=== PATIENT | male | born 1975 | race Caucasian/White ===

== ENCOUNTER 2020-08-04 16:59 | Outpatient (REF) | payer OTHER, SELFPAY | END 2020-08-04 17:00 | disposition home or self-care (01) | LOC: HO.LAB 16:59 | PROVIDERS: Visit Provider Nurse Practitioner Family | DX: L02.91 Cutaneous abscess, unspecified (principal) | CPT/HCPCS: 87071; 87077; 87147; 87186; 87205 ==

== ENCOUNTER 2021-07-26 13:05 | Outpatient (REF) | payer OTHER, SELFPAY ==
--- NOTE | ~2021-07-26 | XR_ITS ---
EXAMINATION: XR PELVIS CLINICAL INFORMATION: Hip pain COMPARISON: 06/20/2020 TECHNIQUE: AP view of the pelvis. FINDINGS: No fracture or dislocation. The hips are appropriately aligned. Severe degenerative change of the right hip with superior joint space narrowing and [id number] appearance. Prominent marginal osteophytes. Flattening of the femoral head. This arthritic change has progressed from prior. Moderate degenerative changes of the left hip with narrowing and sclerosis. Osteophyte formation. The pelvic rim is intact. Normal bowel gas pattern. XR/XR pelvis 1-2V IMPRESSION: Progressive severe degenerative changes of the right hip. Moderate degenerative change of the left hip.
== END 2021-07-26 13:06 | disposition home or self-care (01) ==
LOC: HO.HOSX 13:05
PROVIDERS: Visit Provider Orthopaedic Surgery
DX: M16.11 Unilateral primary osteoarthritis, right hip (principal)
CPT/HCPCS: 72170

== ENCOUNTER → 2021-09-11 13:53 | Outpatient (BNVA) | payer OTHER, MEDICAID, SELFPAY | PROVIDERS: Visit Provider Orthopaedic Surgery | DX: Z01.812 Encounter for preprocedural laboratory examination (principal); Z01.810 Encounter for preprocedural cardiovascular examination ==

== ENCOUNTER 2021-09-24 | Outpatient (REF) | payer OTHER, SELFPAY ==
--- NOTE | 2021-09-24 | ECG_ITS ---
Test Reason : PREOP Blood Pressure : / mmHG Vent. Rate : 083 BPM Atrial Rate : 083 BPM P-R Int : 150 ms QRS Dur : 124 ms QT Int : 376 ms P-R-T Axes : 084 087 049 degrees QTc Int : 441 ms Normal sinus rhythm with sinus arrhythmia Right bundle branch block Abnormal ECG No previous ECGs available Referred By: Kiana Chan Electronically Signed By:KEVIN GONZALEZ MD
[2021-09-24 12:17] VITALS: BP 151/87; PULSE 80; RESP 20; O2SAT 100; BMI 27.4
--- NOTE | 2021-09-24 12:30 | P.CONAN_ITS ---
HPI - Anesthesia Eval Consult details Narrative: Reschedule pending cardiac clearance 46yo M for Right Hip Total Replacement Preop and BP recheck pending for September - EKG changes, PCP sending for cardiac clearance [facility] Active Problems Active Problems: All Active Problems (Updated 09/20/21 @ 09:16 by Kirstie Dietz RN) Abscess (Acute) Wound check, abscess (Acute) Primary osteoarthritis of right hip (Acute) Elevated blood pressure reading (Acute) Encounter for general adult medical examination with abnormal findings (Acute) Past Medical History Medical History COVID-19 vaccine series completed History of MRSA infection Osteoarthritis Family History Family History Mother Cancer Family history of problems with anesthesia: No Surgical History Surgical History History of surgery on right wrist Hx of hand surgery Hx of hand surgery History of Problems with Anesthesia: No Social History Social History Housing: House Are you a primary personal care service provider to a significant other at home: No Do you presently have visiting nurse or other home services: No Alcohol intake: never Patient Tobacco Use Status: Never used Tobacco Tobacco use type: Smokeless Tobacco service: No Current occupational status: employed 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 Pain is only limit Meds Allergies Allergy/AdvReac Type Severity Reaction Status Date / Time No Known Allergies Allergy Verified 09/27/21 09:03 Exam Exam Date and Time: September 24, 2021 1230 Height,Weight and Vital Signs: Height 6 ft 2 in Weight 97.069 kg Last Vital Signs Pulse 80 09/24/21 12:17 Resp 20 09/24/21 12:17 BP 151/87 H 09/24/21 12:17 Pulse Ox 100 09/24/21 12:17 Pertinent Lab Results Pertinent Lab Results: Laboratory Tests 09/24/21 09/24/21 08:12 08:12 WBC 5.5 Hgb 15.2 Hct 44.5 Plt Count 187 Sodium 140 Potassium 4.0 Chloride 104 Carbon Dioxide 28 BUN 11 Creatinine 1.02 Airway Mallampati Class: I TM Dist: >3cm Neck ROM: Full Loose/Missing/Broken Teeth: Yes (Left molar broken) Heart: RRR Lungs: CTAB Assessment and Plan Assessment Anesthesia Assessment: Anesthesia Plan Discussed and PAT Visit Final Anesthetic Review Family History of Problems with Anesthesia: No History of Problems with Anesthesia: No
[2021-09-24 15:04] LABS: MRSA Nasal PCR POSITIVE (Negative); SA Nasal PCR POSITIVE (Negative)
== END 2021-09-24 00:01 ==
LOC: HO.PAT
PROVIDERS: Physician Assistant; PCP Internal Medicine; Visit Provider Orthopaedic Surgery
DX: Z01.818 Encounter for other preprocedural examination (principal); M16.11 Unilateral primary osteoarthritis, right hip
CPT/HCPCS: 86850; 86900; 86901; 87640; 87641; 93005

== ENCOUNTER 2021-09-24 08:06 | Outpatient (REF) | payer OTHER, SELFPAY ==
[2021-09-24 11:23] LABS: MANUAL DIFF FLAG NO
[2021-09-24 11:31] LABS: Basophils Percent Auto 0.5 % (0-2); Eosinophils Absolute Auto 0.1 X10*3/uL (0.0-0.4); Eosinophils Percent Auto 0.9 % (0-4); Hematocrit 44.5 % (42.0-52.0); Hemoglobin 15.2 g/dl (14.0-18.0); Imm Gran Abs Auto 0.02 X10*3/uL (0.00-0.03); Imm Gran Pct Auto 0.4 % (0.0-0.4); Lymphocytes Absolute Auto 1.6 X10*3/uL (1.2-4.9); Lymphocytes Percent Auto 28.8 % (20-40); Mean Corpuscular HGB Conc 34.2 g/dl (31.0-36.0); Mean Corpuscular Hemoglobin 32.5 pg (27.0-33.0); Mean Corpuscular Volume 95.3 fL (80.0-98.0); Mean Platelet Volume 11.4 fL (9.4-12.4); Monocytes Absolute Auto 0.6 X10*3/uL (0.1-1.2); Monocytes Percent Auto 10.1 % (2-11); Neutrophils Absolute Auto 3.2 x10*3/uL (2.0-8.3); Neutrophils Percent Auto 59.3 % (45-73); Platelet Count 187 X10*3/uL (160-400); Red Blood Count 4.67 X10*6/uL (4.60-5.80); Red Cell Distribution Width 11.7 % (11.0-16.0); White Blood Count 5.5 X10*3/uL (4.8-10.8)
[2021-09-24 11:50] LABS: Alanine Aminotransferase 25 U/L (0-40); Albumin Level 4.6 g/dL (3.5-5.0); Alkaline Phosphatase 57 U/L (39-117); Anion Gap 12 (12-20); Aspartate Amino Transferase 20 U/L (5-37); Bilirubin Total 0.5 mg/dL (0.0-1.0); Blood Urea Nitrogen 11 mg/dL (9-16); Calcium 9.7 mg/dL (8.4-10.2); Carbon Dioxide 28 mmol/L (22-29); Chloride 104 mmol/L (96-108); Cholesterol 250 mg/dL; Estimated Glomerular Filt Rate > 60; Glucose Fasting 115 mg/dL (60-99); HDL Cholesterol 49 mg/dL; LDL Cholesterol Calculated 144 mg/dl; Sodium 140 mmol/L (135-145); Triglycerides 285 mg/dL
[2021-09-28 12:52] LABS: Vitamin D 25-OH, D2 <4 ng/mL; Vitamin D 25-OH, D3 22 ng/mL; Vitamin D 25-OH, Total 22 ng/mL (30-100)
== END 2021-09-24 08:07 | disposition home or self-care (01) ==
LOC: HO.HMGCLDS 08:06
PROVIDERS: Orthopaedic Surgery; PCP Internal Medicine; Visit Provider Internal Medicine
DX: Z00.01 Encounter for general adult medical examination with abnormal findings (principal); M16.11 Unilateral primary osteoarthritis, right hip; R03.0 Elevated blood-pressure reading, without diagnosis of hypertension
CPT/HCPCS: 36415; 80048; 80053; 80061; 82306; 84443; 85025

== ENCOUNTER → 2021-09-27 08:52 | Outpatient (BNVA) | payer OTHER, SELFPAY | PROVIDERS: Visit Provider Physician Assistant ==

== ENCOUNTER 2021-10-12 18:16 | Inpatient (IN) | payer OTHER, SELFPAY ==
--- NOTE | ~2021-10-12 | XR_ITS ---
EXAMINATION: XR HAND, RIGHT CLINICAL INFORMATION: Right hand cellulitis with question of osteomyelitis COMPARISON: None TECHNIQUE: PA, lateral, and oblique views of the right hand. FINDINGS: Soft tissue swelling is noted benign eminence. 3 screws are present at the base of the second metacarpal. No bony destructive changes are seen to suggest osteomyelitis. No fractures are detected. Degenerative changes are seen at the third DIP joint with large osteophytes. Some milder degenerative changes present at the first metacarpal phalangeal joint as well as the radiocarpal joint. Old healed fracture fifth metacarpal. XR/XR hand RT 2V IMPRESSION: No evidence of osteomyelitis. Postop and degenerative changes as described above
--- NOTE | ~2021-10-12 | US_ITS ---
EXAMINATION: ULTRASOUND EXTREMITY NONVASCULAR CLINICAL INFORMATION: Right hand cellulitis. Rule out abscess. COMPARISON: Previous x-ray from yesterday TECHNIQUE: Grayscale and color imaging of the soft tissues of the dorsal hand FINDINGS: There is diffuse edema. No focal fluid collection to suggest an abscess is seen. US/US extremity nonvascular IMPRESSION: Diffuse edema. No focal fluid collection to suggest abscess seen.
[2021-10-12 19:24] VITALS: BP 128/73; PULSE 97; RESP 16; TEMP 37.8; O2SAT 100; BMI 27.7
[2021-10-12 19:52] LABS: Basophils Absolute Auto 0.1 X10*3/uL (0.0-0.2); Basophils Percent Auto 0.3 % (0-2); Hematocrit 41.3 % (42.0-52.0); Hemoglobin 15.2 g/dl (14.0-18.0); Imm Gran Abs Auto 0.74 X10*3/uL (0.00-0.03); Imm Gran Pct Auto 2.7 % (0.0-0.4); Lymphocytes Absolute Auto 0.7 X10*3/uL (1.2-4.9); Lymphocytes Percent Auto 2.6 % (20-40); MANUAL DIFF FLAG SCAN; Mean Corpuscular HGB Conc 36.8 g/dl (31.0-36.0); Mean Corpuscular Volume 92.4 fL (80.0-98.0); Mean Platelet Volume 10.5 fL (9.4-12.4); Monocytes Absolute Auto 1.3 X10*3/uL (0.1-1.2); Neutrophils Absolute Auto 24.1 x10*3/uL (2.0-8.3); Neutrophils Percent Auto 89.4 % (45-73); Platelet Count 145 X10*3/uL (160-400); Red Blood Count 4.47 X10*6/uL (4.60-5.80); Red Cell Distribution Width 11.6 % (11.0-16.0); SCAN SMEAR FLAG 1
[2021-10-12 20:05] LABS: Lactic Acid 1.4 mmol/L (0.5-2.0)
[2021-10-12 20:07] LABS: COVID-19 Test Negative (Negative)
[2021-10-12 20:11] LABS: Alanine Aminotransferase 24 U/L (0-40); Albumin Level 4.1 g/dL (3.5-5.0); Alkaline Phosphatase 58 U/L (39-117); Anion Gap 14 (12-20); Aspartate Amino Transferase 22 U/L (5-37); Bilirubin Direct 0.5 mg/dL (0.0-0.5); Bilirubin Total 1.2 mg/dL (0.0-1.0); Blood Urea Nitrogen 15 mg/dL (9-16); Calcium 9.1 mg/dL (8.4-10.2); Carbon Dioxide 22 mmol/L (22-29); Chloride 100 mmol/L (96-108); Creatinine Clr Calc Pharmacy 88.6; Estimated Glomerular Filt Rate > 60; Glucose Random 127 mg/dL (60-115); Potassium 3.8 mmol/L (3.3-5.1); Sodium 132 mmol/L (135-145); Total Protein 7.6 g/dL (6.5-8.0)
[2021-10-12 20:26] LABS: SLIDE REVIEW VERIFIED
--- NOTE | 2021-10-12 20:40 | ED_ITS ---
HPI - Skin/Abscess/Foreign Bdy General Chief complaint: Skin/Abscess/Foreign Body <ISAC Mccarty - Last Filed: 10/13/21 00:49> Stated complaint: hand infection <ISAC Mccarty Last Filed: 10/13/21 00:49> Time Seen by Provider: 10/12/21 20:40 <ISAC Mccraty Last Filed: 10/13/21 00:49> Source: patient <ISAC Mccarty Last Filed: 10/13/21 00:49> Mode of arrival: ambulatory <ISAC Mccarty Last Filed: 10/13/21 00:49> Limitations: no limitations <ISAC Mccarty Last Filed: 10/13/21 00:49> History of Present Illness HPI narrative: Patient is a 46 year old male presenting to the emergency department today with right hand pain. Patient states that 2 days ago, he got a cut on his right hand, and now his hand is significantly more swollen and causing him pain. Patient states he does not know when his last tetanus shot was. Patient states he does not remember what he scratched his hand on. Patient states that quite a few years ago, he smashed his right hand, resulting in a surgery where he had screws placed in his right hand. Patient states he does not remember who did the surgery, or where the surgery was. Patient denies any dizziness, lightheadedness, abdominal pain, nausea, vomiting, fever, chills, blurry vision, double vision, loss of vision, chest pain, difficulty breathing, shortness of breath, back pain, night sweats, pain with urination, increased urinary frequency, increased urinary urgency, blood in his urine or stool, syncope or a near syncopal episode, bowel incontinence, bladder incontinence, bowel retention, bladder retention, or any other complaints at this time. <ISAC Mccarty Last Filed: 10/13/21 00:49> MD complaint: laceration <ISAC Mccarty Last Filed: 10/13/21 00:49> Onset (ago): day(s) <ISAC Mccarty Last Filed: 10/13/21 00:49> Tetanus up to date: unsure <ISAC Mccarty Last Filed: 10/13/21 00:49> Location: R hand <ISAC Mccarty - Last Filed: 10/13/21 00:49> Severity: mild <ISAC Mccarty Last Filed: 10/13/21 00:49> Severity scale (1-10): 5 <ISAC Mccarty Last Filed: 10/13/21 00:49> Quality: constant <ISAC Mccarty Last Filed: 10/13/21 00:49> Pain Consistency: constant <ISAC Mccarty Last Filed: 10/13/21 00:49> Relieving factors: none <ISAC Mccarty Last Filed: 10/13/21 00:49> Exacerbating factors: none <ISAC Mccarty Last Filed: 10/13/21 00:49> Associated symptoms: denies other symptoms <ISAC Mccarty Last Filed: 10/13/21 00:49> Treatments prior to arrival: none <ISAC Mccarty Last Filed: 10/13/21 00:49> Related Data Home medications: Previous Rx's Medication Instructions Recorded atenolol 25 mg tablet 25 mg PO DAILY 90 Days #90 tab 09/26/21 oxycodone 10 mg tablet,crush 10 mg PO Q12H 3 Days #6 tab 09/27/21 resistant,extended release 12 hr (OxyContin) oxycodone-acetaminophen 5 mg-325 1 tab PO Q6H PRN 7 Days #28 tab 09/27/21 mg tablet (Percocet) <ISAC Mccarty - Last Filed: 10/13/21 00:49> Allergies/Adverse reactions: Allergies Allergy/AdvReac Type Severity Reaction Status Date / Time No Known Allergies Allergy Verified 09/27/21 09:03 <ISAC Mccarty - Last Filed: 10/13/21 00:49> Review of Systems Constitutional: Constitutional: Reports no additional constitutional complaints, Denies chills, Denies fever(s) and Denies night sweats <ISAC Mccarty Last Filed: 10/13/21 00:49> Eyes: Eyes: Reports no additional eye complaints, Denies blurry vision, Denies change in vision, Denies diplopia, Denies eye discharge, Denies loss of vision and Denies eye pain <ISAC Mccarty Last Filed: 10/13/21 00:49> ENT: Denies dizziness <ISAC Mccarty - Last Filed: 10/13/21 00:49> Cardiovascular: Cardiovascular: Reports no additional cardiovascular complaints, Denies chest pain, Denies lightheadedness, Denies Loss of Consciousness and Denies dyspnea <ISAC Mccarty - Last Filed: 10/13/21 00:49> Respiratory: Respiratory: Reports no additional respiratory complaints and Denies dyspnea <ISAC Mccarty Last Filed: 10/13/21 00:49> Gastrointestinal: Gastrointestinal: Reports no additional gastrointestinal complaints, Denies abdominal pain, Denies melena, Denies hematochezia, Denies change in bowel habits and Denies change in stool character <ISAC Mccarty Last Filed: 10/13/21 00:49> Genitourinary: Genitourinary: Reports no additional male genitourinary complaints, Denies hematuria, Denies oliguria, Denies difficulty urinating, Denies dysuria, Denies urinary frequency, Denies urinary hesitancy, Denies urinary incontinence and Denies urinary urgency <ISAC Mccarty Last Filed: 10/13/21 00:49> Musculoskeletal: Musculoskeletal: Reports no additional musculoskeletal complaints, Denies numbness and Denies tingling <ISAC Mccarty Last Filed: 10/13/21 00:49> Comments: Right hand pain, redness, and swelling <ISAC Mccarty Last Filed: 10/13/21 00:49> Neurologic: Denies dizziness, Denies loss of vision, Denies numbness and Denies tingling <ISAC Mccarty Last Filed: 10/13/21 00:49> Psychiatric: Psychiatric: Reports no additional psychiatric complaints <ISAC Mccarty Last Filed: 10/13/21 00:49> Endocrine: Endocrine: Reports no additional endocrine complaints <ISAC Mccarty Last Filed: 10/13/21 00:49> Hematologic/Lymphatic: Hematologic/Lymphatic: Reports no additional hematologic/lymphatic complaints <ISAC Mccarty - Last Filed: 10/13/21 00:49> Allergic/Immunologic: Allergic/Immunologic: Reports no additional all ergic/immunologic complaints <ISAC Mccarty - Last Filed: 10/13/21 00:49> [facility] Past Medical History Attestation statement: The following information was validated with the patient. <ISAC Mccarty - Last Filed: 10/13/21 00:49> Medical History: Medical History COVID-19 vaccine series completed History of MRSA infection Osteoarthritis <ISAC Mccarty - Last Filed: 10/13/21 00:49> Surgical History: Surgical History History of surgery on right wrist Hx of hand surgery Hx of hand surgery <ISAC Mccarty - Last Filed: 10/13/21 00:49> Family History Family History: Family History Mother Cancer <ISAC Mccarty - Last Filed: 10/13/21 00:49> Social History Social History: Social History Housing: House Are you a primary career technical counselor to a significant other at home: No Do you presently have visiting nurse or other home services: No Alcohol intake: never Patient Tobacco Use Status: Never used Tobacco Tobacco use type: Smokeless Tobacco Use of substances other than those prescribed or required for medical reasons: No Advance Directives: No Advance Directives Information Provided: No Current occupational status: employed 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 <ISAC Mccarty - Last Filed: 10/13/21 00:49> Physical Exam Vital Signs: Vital Signs: Last Vital Signs Temp 98.6 F 10/13/21 00:38 Pulse 90 10/13/21 00:38 Resp 16 10/13/21 00:38 BP 123/68 10/13/21 00:38 Pulse Ox 97 10/13/21 00:38 BMI result Body Mass Index 27.7 <ISAC Mccarty - Last Filed: 10/13/21 00:49> Vital Signs: Last Vital Signs Temp 98.6 F 10/13/21 00:38 Pulse 90 10/13/21 00:38 Resp 16 10/13/21 00:38 BP 123/68 10/13/21 00:38 Pulse Ox 97 10/13/21 00:38 BMI result Body Mass Index 27.7 <Ricardo Caraballo MD - Last Filed: 10/13/21 00:52> Extrem: General: Yes full ROM <ISAC Mccarty - Last Filed: 10/13/21 00:49> Right upper extremity: full ROM and Extremity exam: right hand (Small laceration present to the right 2nd MCP, with surrounding erythema) Details: normal capillary refill, neuromotor exam normal, neurosensory exam normal, tendon exam normal, tenderness Location: of the dorsal hand, warmth Location: of the dorsal hand and swelling Location: of the dorsal hand <ISAC Mccarty - Last Filed: 10/13/21 00:49> Course Course Course Narrative: Patient's right hand x-ray showed: No evidence of osteomyelitis. Postop and degenerative changes as described above Dictated By: MICHELA SMITH MD Signed By: Electronically signed by MICHELA SMITH MD <ISAC Mccarty - Last Filed: 10/13/21 00:49> Consultations Consultation #1: Spoke with Orthopedic PA backend python developer who stated they would round on the patient in the morning. <ISAC Mccarty - Last Filed: 10/13/21 00:49> Time: 21:18 <ISAC Mccarty - Last Filed: 10/13/21 00:49> MDM - Skin/Abscess/Foreign Bdy MDM Narrative Medical decision making narrative: Patient is a 46 year old male presenting to the emergency department today with right hand pain. Patient's physical exam showed erythema, warmth, and significant swelling to the dorsal aspect of the right hand surrounding the 2nd MCP joint. Patient's range of motion, and sensation were completely intact the right upper extremity including the right fingers, right hand, right wrist, right forearm, or elbow, right upper arm, and right shoulder. Patient's blood wo rk showed a markedly elevated white blood cell count. Patient's right hand x- ray showed no acute process but did show the presence of surgical hardware and degenerative changes. I explained my physical exam findings as well as all test results to the patient. I answered all questions asked by the patient. Patient received IV vancomycin, Rocephin, morphine which he stated helped his symptoms significantly. I spoke to the orthopedic PA, Raisa, who stated that she would round on the patient tomorrow morning. I spoke to Dr. Mcmahan who agreed to hospital admission. Patient verbalized agreement and understanding with this treatment plan and admission. <ISAC Mccarty - Last Filed: 10/13/21 00:49> Differential Diagnosis Differential diagnosis: Likely abscess of skin or subcutaneous tissue and cellulitis <ISAC Mccarty - Last Filed: 10/13/21 00:49> Medical Records Attestation: I reviewed the patient's medical records. <ISAC Mccarty - Last Filed: 10/13/21 00:49> Lab Data Attestation: I reviewed the patient's lab results. <ISAC Mccarty - Last Filed: 10/13/21 00:49> Result diagrams: : 10/12/21 19:43 10/12/21 19:43 <ISAC Mccarty - Last Filed: 10/13/21 00:49> Labs: Lab Results 10/12/21 10/12/21 10/12/21 Range/Units 19:43 19:43 19:43 WBC 27.0 H (4.8-10.8) X10*3/uL RBC 4.47 L (4.60-5.80) X10*6/uL Hgb 15.2 (14.0-18.0) g/dl Hct 41.3 L (42.0-52.0) % MCV 92.4 (80.0-98.0) fL MCH 34.0 H (27.0-33.0) pg MCHC 36.8 H (31.0-36.0) g/dl RDW 11.6 (11.0-16.0) % Plt Count 145 L (160-400) X10*3/uL MPV 10.5 (9.4-12.4) fL Immature Gran % (Auto) 2.7 H (0.0-0.4) % Neut % (Auto) 89.4 H (45-73) % Lymph % (Auto) 2.6 L (20-40) % [place] % (Auto) 5.0 (2-11) % Eos % (Auto) 0.0 (0-4) % Baso % (Auto) 0.3 (0-2) % Lymph # (Auto) 0.7 L (1.2-4.9) X10*3/uL [place] # (Auto) 1.3 H (0.1-1.2) X10*3/uL Eos # (Auto) 0.0 (0.0-0.4) X10*3/uL Baso # (Auto) 0.1 (0.0-0.2) X10*3/uL Abs Immat Gran (auto) 0.74 H (0.00-0.03) X10*3/uL Absolute Neuts (auto) 24.1 H (2.0-8.3) x10*3/uL Absolute Nucleated RBC 0.000 (0.0-0.012) X10*3/uL Nucleated RBC % (auto) 0.0 (0.0-0.2) /100WBC Smear Tech's Comments VERIFIED Sodium 132 L (135-145) mmol/L Potassium 3.8 (3.3-5.1) mmol/L Chloride 100 (96-108) mmol/L Carbon Dioxide 22 (22-29) mmol/L Anion Gap 14 (12-20) BUN 15 (9-16) mg/dL Creatinine 1.21 (0.5-1.4) mg/dL Estim Creat Clear Calc 88.6 Estimated GFR > 60 Random Glucose 127 H (60-115) mg/dL Lactic Acid 1.4 (0.5-2.0) mmol/L Calcium 9.1 D (8.4-10.2) mg/dL Total Bilirubin 1.2 H (0.0-1.0) mg/dL Direct Bilirubin 0.5 (0.0-0.5) mg/dL AST 22 (5-37) U/L ALT 24 (0-40) U/L Alkaline Phosphatase 58 (39-117) U/L Total Protein 7.6 (6.5-8.0) g/dL Albumin 4.1 (3.5-5.0) g/dL COVID-19 ([facility]ADE) (Negative) COVID-19 Clin Com 10/12/21 Range/Units 19:43 WBC (4.8-10.8) X10*3/uL RBC (4.60-5.80) X10*6/uL Hgb (14.0-18.0) g/dl Hct (42.0-52.0) % MCV (80.0-98.0) fL MCH (27.0-33.0) pg MCHC (31.0-36.0) g/dl RDW (11.0-16.0) % Plt Count (160-400) X10*3/uL MPV (9.4-12.4) fL Immature Gran % (Auto) (0.0-0.4) % Neut % (Auto) (45-73) % Lymph % (Auto) (20-40) % [place] % (Auto) (2-11) % Eos % (Auto) (0-4) % Baso % (Auto) (0-2) % Lymph # (Auto) (1.2-4.9) X10*3/uL [place] # (Auto) (0.1-1.2) X10*3/uL Eos # (Auto) (0.0-0.4) X10*3/uL Baso # (Auto) (0.0-0.2) X10*3/uL Abs Immat Gran (auto) (0.00-0.03) X10*3/uL Absolute Neuts (auto) (2.0-8.3) x10*3/uL Absolute Nucleated RBC (0.0-0.012) X10*3/uL Nucleated RBC % (auto) (0.0-0.2) /100WBC Smear Tech's Comments Sodium (135-145) mmol/L Potassium (3.3-5.1) mmol/L Chloride (96-108) mmol/L Carbon Dioxide (22-29) mmol/L Anion Gap (12-20) BUN (9-16) mg/dL Creatinine (0.5-1.4) mg/dL Estim Creat Clear Calc Estimated GFR Random Glucose (60-115) mg/dL Lactic Acid (0.5-2.0) mmol/L Calcium (8.4-10.2) mg/dL Total Bilirubin (0.0-1.0) mg/dL Direct Bilirubin (0.0-0.5) mg/dL AST (5-37) U/L ALT (0-40) U/L Alkaline Phosphatase (39-117) U/L Total Protein (6.5-8.0) g/dL Albumin (3.5-5.0) g/dL COVID-19 ([facility]ADE) Negative (Negative) COVID-19 Clin Com See Note <ISAC Mccarty - Last Filed: 10/13/21 00:49> Lab Results 10/12/21 10/12/21 10/12/21 Range/Units 19:43 19:43 19:43 WBC 27.0 H (4.8-10.8) X10*3/uL RBC 4.47 L (4.60-5.80) X10*6/uL Hgb 15.2 (14.0-18.0) g/dl Hct 41.3 L (42.0-52.0) % MCV 92.4 (80.0-98.0) fL MCH 34.0 H (27.0-33.0) pg MCHC 36.8 H (31.0-36.0) g/dl RDW 11.6 (11.0-16.0) % Plt Count 145 L (160-400) X10*3/uL MPV 10.5 (9.4-12.4) fL Immature Gran % (Auto) 2.7 H (0.0-0.4) % Neut % (Auto) 89.4 H (45-73) % Lymph % (Auto) 2.6 L (20-40) % [place] % (Auto) 5.0 (2-11) % Eos % (Auto) 0.0 (0-4) % Baso % (Auto) 0.3 (0-2) % Lymph # (Auto) 0.7 L (1.2-4.9) X10*3/uL [place] # (Auto) 1.3 H (0.1-1.2) X10*3/uL Eos # (Auto) 0.0 (0.0-0.4) X10*3/uL Baso # (Auto) 0.1 (0.0-0.2) X10*3/uL Abs Immat Gran (auto) 0.74 H (0.00-0.03) X10*3/uL Absolute Neuts (auto) 24.1 H (2.0-8.3) x10*3/uL Absolute Nucleated RBC 0.000 (0.0-0.012) X10*3/uL Nucleated RBC % (auto) 0.0 (0.0-0.2) /100WBC Smear Tech's Comments VERIFIED Sodium 132 L (135-145) mmol/L Potassium 3.8 (3.3-5.1) mmol/L Chloride 100 (96-108) mmol/L Carbon Dioxide 22 (22-29) mmol/L Anion Gap 14 (12-20) BUN 15 (9-16) mg/dL Creatinine 1.21 (0.5-1.4) mg/dL Estim Creat Clear Calc 88.6 Estimated GFR > 60 Random Glucose 127 H (60-115) mg/dL Lactic Acid 1.4 (0.5-2.0) mmol/L Calcium 9.1 D (8.4-10.2) mg/dL Total Bilirubin 1.2 H (0.0-1.0) mg/dL Direct Bilirubin 0.5 (0.0-0.5) mg/dL AST 22 (5-37) U/L ALT 24 (0-40) U/L Alkaline Phosphatase 58 (39-117) U/L Total Protein 7.6 (6.5-8.0) g/dL Albumin 4.1 (3.5-5.0) g/dL COVID-19 ([facility]) (Negative) COVID-19 Clin Com 10/12/21 Range/Units 19:43 WBC (4.8-10.8) X10*3/uL RBC (4.60-5.80) X10*6/uL Hgb (14.0-18.0) g/dl Hct (42.0-52.0) % MCV (80.0-98.0) fL MCH (27.0-33.0) pg MCHC (31.0-36.0) g/dl RDW (11.0-16.0) % Plt Count (160-400) X10*3/uL MPV (9.4-12.4) fL Immature Gran % (Auto) (0.0-0.4) % Neut % (Auto) (45-73) % Lymph % (Auto) (20-40) % [place] % (Auto) (2-11) % Eos % (Auto) (0-4) % Baso % (Auto) (0-2) % Lymph # (Auto) (1.2-4.9) X10*3/uL [place] # (Auto) (0.1-1.2) X10*3/uL Eos # (Auto) (0.0-0.4) X10*3/uL Baso # (Auto) (0.0-0.2) X10*3/uL Abs Immat Gran (auto) (0.00-0.03) X10*3/uL Absolute Neuts (auto) (2.0-8.3) x10*3/uL Absolute Nucleated RBC (0.0-0.012) X10*3/uL Nucleated RBC % (auto) (0.0-0.2) /100WBC Smear Tech's Comments Sodium (135-145) mmol/L Potassium (3.3-5.1) mmol/L Chloride (96-108) mmol/L Carbon Dioxide (22-29) mmol/L Anion Gap (12-20) BUN (9-16) mg/dL Creatinine (0.5-1.4) mg/dL Estim Creat Clear Calc Estimated GFR Random Glucose (60-115) mg/dL Lactic Acid (0.5-2.0) mmol/L Calcium (8.4-10.2) mg/dL Total Bilirubin (0.0-1.0) mg/dL Direct Bilirubin (0.0-0.5) mg/dL AST (5-37) U/L ALT (0-40) U/L Alkaline Phosphatase (39-117) U/L Total Protein (6.5-8.0) g/dL Albumin (3.5-5.0) g/dL COVID-19 ([facility]) Negative (Negative) COVID-19 Clin Com See Note <Ricardo Caraballo MD - Last Filed: 10/13/21 00:52> Discharge Plan Discharge Clinical Impression: Cellulitis of hand <ISAC Mccarty - Last Filed: 10/13/21 00:49> Patient Disposition: Admitted As Inpatient <ISAC Mccarty - Last Filed: 10/13/21 00:49>
[2021-10-12] MEDS: Diphth,Pertus(ACell),Tet Adult 0.5 ML SYRINGE IM (21:16)
[2021-10-12] MEDS: cefTRIAXone sodium 1 GM in 0.9 % Sodium Chloride 50 ML IV (21:17)
[2021-10-12] MEDS: vancomycin HCL 1,000 MG in 0.9 % Sodium Chloride 250 ML 270 MG IV (21:47)
[2021-10-12 21:48] VITALS: BP 125/67; PULSE 97; RESP 16; TEMP 37.8; O2SAT 100
[2021-10-12 22:36] VITALS: RESP 15
[2021-10-12] MEDS: Morphine Sulfate 4 MG/ML CARTRIDGE IVPUSH (22:36)
--- NOTE | 2021-10-12 22:55 | P.HPHOSP_ITS ---
History of Present Illness Date of Service: 10/12/21 Chief Complaint: right hand pain redness and swelling 46-year-old male with a past medical history of hypertension , osteoarthritis, history of total right hip arthroplasty presented to the hospital with a chief complaint of right hand pain redness and swelling. patient mentioned that over the past few days ago he had a small latia on the medial side of his right hand, subsequently is he was applying topical antibiotics; but continued to have increased pain and swelling on the dorsum of the right hand; denies any fevers. As the symptoms were worsening decided to come to the ER for further evaluation. Denies any chest pain palpitations lightheadedness or dizziness. Denies any GI symptoms. ER course: Per ER team patient noted to have dorsum of the hand swollen, no fluctuance E, less concern for abscess; able to extend the fingers-less concern for tenosynovitis. Discussed with ortho team who recommended admission to the medicine service and will be evaluated in the morning. Patient was given vanc and ceftriaxone. [facility] Medical History COVID-19 vaccine series completed History of MRSA infection Osteoarthritis Family History Mother Cancer Pertinent family history: As above Surgical History History of surgery on right wrist Hx of hand surgery Hx of hand surgery Social History (Updated 09/27/21 @ 09:01 by Devante Estrella) Housing: House Are you a primary specialist wound care to a significant other at home: No Do you presently have visiting nurse or other home services: No Alcohol intake: never Patient Tobacco Use Status: Never used Tobacco Tobacco use type: Smokeless Tobacco Use of substances other than those prescribed or required for medical reasons: No Advance Directives: No Advance Directives Information Provided: No Current occupational status: employed 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 Meds Allergies Allergy/AdvReac Type Severity Reaction Status Date / Time No Known Allergies Allergy Verified 09/27/21 09:03 Physical Exam Verdana 4l Vital Signs and Narrative: Verdana 4d Verdana 4d Vital Signs: Verdana 4d Verdana 4Bd Last Vital Signs Verdana 4d Produce Field Merchandiser New 4d Produce Field Merchandiser New 4d Temp 100.0 F 10/12/21 21:48 Produce Field Merchandiser New 4d Pulse 97 10/12/21 21:48 Produce Field Merchandiser NewNew 4d Resp 15 10/12/21 22:36 BP 125/67 10/12/21 21:48 Pulse Ox 100 10/12/21 21:48 BMI result Body Mass Index 27.7 Gen: Appears be in no acute distress HEENT: NCAT, Moist mucosa. Pulmonary: Vesicular breath sounds, fair air entry CVS: Normal S1-S2 Abdomen: BS+, Soft, Nontender Extremities: Warm well perfused; right hand dorsum warm, tender, erythematous, swollen, no fluctuance see. Able to extend the fingers. Range of motion of the wrist intact. Neuro: Alert and awake. Results Labs CBC and Chem 7: 10/12/21 19:43 10/12/21 19:43 Labs: Laboratory Results - last 24 hr 10/12/21 10/12/21 10/12/21 19:43 19:43 19:43 MCV 92.4 MCH 34.0 H MCHC 36.8 H RDW 11.6 Plt Count 145 L MPV 10.5 Immature Gran % (Auto) 2.7 H Neut % (Auto) 89.4 H Lymph % (Auto) 2.6 L [place] % (Auto) 5.0 Eos % (Auto) 0.0 Baso % (Auto) 0.3 Lymph # (Auto) 0.7 L [place] # (Auto) 1.3 H Eos # (Auto) 0.0 Baso # (Auto) 0.1 Abs Immat Gran (auto) 0.74 H Absolute Neuts (auto) 24.1 H Absolute Nucleated RBC 0.000 Nucleated RBC % (auto) 0.0 Smear Tech's Comments VERIFIED Anion Gap 14 Estim Creat Clear Calc 88.6 Estimated GFR > 60 Random Glucose 127 H Lactic Acid 1.4 Calcium 9.1 D Total Bilirubin 1.2 H Direct Bilirubin 0.5 AST 22 ALT 24 Alkaline Phosphatase 58 Total Protein 7.6 Albumin 4.1 COVID-19 ([facility]) COVID-19 Clin Com 10/12/21 19:43 MCV MCH MCHC RDW Plt Count MPV Immature Gran % (Auto) Neut % (Auto) Lymph % (Auto) [place] % (Auto) Eos % (Auto) Baso % (Auto) Lymph # (Auto) [place] # (Auto) Eos # (Auto) Baso # (Auto) Abs Immat Gran (auto) Absolute Neuts (auto) Absolute Nucleated RBC Nucleated RBC % (auto) Smear Tech's Comments Anion Gap Estim Creat Clear Calc Estimated GFR Random Glucose Lactic Acid Calcium Total Bilirubin Direct Bilirubin AST ALT Alkaline Phosphatase Total Protein Albumin COVID-19 ([facility]) Negative COVID-19 Clin Com See Note Imaging Radiologist's Impressions: Impressions Hand X-Ray 10/12/21 21:06 IMPRESSION: No evidence of osteomyelitis. Postop and degenerative changes as described above Assessment and Plan (1) Cellulitis of hand: Status: Acute 46-year-old male with a past medical history of hypertension , osteoarthritis, history of total right hip arthroplasty presented to the hospital with a chief complaint of right hand pain redness and swelling. Noted to have right hand dorsum cellulitis. Admitted for further management. Right hand dorsum cellulitis: hand x-ray showed no evidence of osteomyelitis. Degenerative changes noted. Continue vancomycin and ceftriaxone. Will obtain ultrasound Patient currently has decent range of motion of his fingers as well as wrist. Less concern for tenosynovitis. Had surgery/ Orthopedics follow-up. History of hypertension: Continue home med level. DVT prophylaxis: Lovenox Code status: Full code Quality Stroke Does the patient have a stroke diagnosis?: No VTE Prior VTE?: No VTE Risk Level:: Medical - moderate - high VTE Device Contraindication: Treatment Not Indicated VTE Drug Contraindication: N/A - Med Ordered
[2021-10-13 00:38] VITALS: BP 123/68; PULSE 90; RESP 16; TEMP 37; O2SAT 97
[2021-10-13 03:09] VITALS: BP 117/76; PULSE 92; RESP 16; TEMP 37.2; O2SAT 100
[2021-10-13 07:12] LABS: MANUAL DIFF FLAG NO
[2021-10-13 07:21] VITALS: BP 113/66; PULSE 97; RESP 14; TEMP 36.9; O2SAT 97
[2021-10-13] MEDS: atenoloL 25 MG TABLET PO (07:21)
[2021-10-13] MEDS: 0.9 % Sodium Chloride Flush 3 ML SYRINGE IVFLUSH ×3 (07:22→23:48)
[2021-10-13] MEDS: Enoxaparin Sodium 40 MG/0.4 ML SYRINGE SUBCUT (07:22)
[2021-10-13 07:32] LABS: Basophils Percent Auto 0.2 % (0-2); Eosinophils Absolute Auto 0.1 X10*3/uL (0.0-0.4); Eosinophils Percent Auto 0.7 % (0-4); Hematocrit 38.1 % (42.0-52.0); Hemoglobin 13.5 g/dl (14.0-18.0); Imm Gran Abs Auto 0.32 X10*3/uL (0.00-0.03); Imm Gran Pct Auto 1.9 % (0.0-0.4); Lymphocytes Absolute Auto 0.6 X10*3/uL (1.2-4.9); Lymphocytes Percent Auto 3.3 % (20-40); Mean Corpuscular HGB Conc 35.4 g/dl (31.0-36.0); Mean Corpuscular Hemoglobin 33.3 pg (27.0-33.0); Mean Corpuscular Volume 93.8 fL (80.0-98.0); Mean Platelet Volume 10.6 fL (9.4-12.4); Monocytes Absolute Auto 0.7 X10*3/uL (0.1-1.2); Monocytes Percent Auto 4.1 % (2-11); Neutrophils Absolute Auto 15.2 x10*3/uL (2.0-8.3); Neutrophils Percent Auto 89.8 % (45-73); Platelet Count 117 X10*3/uL (160-400); Red Blood Count 4.06 X10*6/uL (4.60-5.80); Red Cell Distribution Width 11.5 % (11.0-16.0); White Blood Count 16.9 X10*3/uL (4.8-10.8)
[2021-10-13 07:36] LABS: Anion Gap 12 (12-20); Blood Urea Nitrogen 13 mg/dL (9-16); Calcium 8.7 mg/dL (8.4-10.2); Carbon Dioxide 25 mmol/L (22-29); Chloride 101 mmol/L (96-108); Creatinine Clr Calc Pharmacy 105.2; Estimated Glomerular Filt Rate > 60; Glucose Random 117 mg/dL (60-115); Potassium 3.5 mmol/L (3.3-5.1); Sodium 134 mmol/L (135-145)
--- NOTE | 2021-10-13 07:53 | PHA.MEDREC ---
Pharmacy Consult ? Medication Reconciliation RN completed med rec, pharmacy reviewed
--- NOTE | 2021-10-13 09:39 | PHA.PROG ---
Admission Date/Time: October 12, 2021 22:54 Indication: Cellulitis Weight in k.976 kg Adjusted body weight in K.5 mg [place] body weight in K.2 mg Obesity Dosing Indication % IBW: N/A Serum Creatinine - Last 168 Hours 10/12/21 10/13/21 19:43 07:02 Creatinine 1.21 1.02 Estimated CrCl and GFR - Last 168 Hours 10/12/21 10/13/21 19:43 07:02 Estim Creat Clear Calc 88.6 105.2 Estimated GFR > 60 > 60 Vancomycin Loading Dose: 1000 mg on 10/12 @ 2147 then 1500 mg to be given 10/13 @ 1000 Current Vancomycin Dosing Regimen: 1000 mg Q12H Date and Time for next Vancomycin Level to be drawn: 10/14 @ 0800 Pharmacist Comments on Vancomycin Plan: Patient did not receive an adequate loading dose. Patient weighs 98 kg and would need a 2 g loading dose. Patient was only given 1 gram. To help load the patient, will give a one time dose of 1500 mg prior to maintenance dose that is 12 hours after initial dose. Mainteance dose of 1000 mg Q12H will start 10/13 @ 2200. The expected AUC will be 427 with a trough of 13.4. The patient should be in therpautic level by around dose number 4. Trough to be drawn prior to 4th dose Pharmacy will monitor renal function daily Karlee Hall PharmD Vancomycin dosing will take advantage of [employer] as a clinical decision support tool that uses Bayesian modeling to calculate individual patient's pharmacokinetic parameters and forecast the patient's drug concentration time course with the target goal AUC 24 range of 400 - 600 mg/L/hr.
[2021-10-13 09:42] VITALS: BP 107/67; PULSE 83; RESP 15; TEMP 37.4; O2SAT 98
[2021-10-13] MEDS: vancomycin HCL 1,500 MG in 0.9 % Sodium Chloride 500 ML 333.33 MG IV (09:54)
--- NOTE | 2021-10-13 10:57 | PM.EVENT ---
Event Note Date of Service: 10/13/21 Event Note: Patient evaluated at bedside this morning. He reports that his pain, redness and inflammation has decreased since abx. would recommend bedside warm soaks/brandon. No concern for tenosynovitis at this time. Formal note to follow.
--- NOTE | 2021-10-13 11:06 | PC.NURSE ---
Report to [place] in ED overflow to bed 12 at this time.
--- NOTE | 2021-10-13 11:59 | P.PNIM_ITS ---
Subjective Subjective Date of Service: 10/13/21 Interval History: cc: right hand pain and swelling interval history: improved ROM, still pain and swelling Cardiovascular Cardiovascular: Reports no additional cardiovascular complaints Respiratory Respiratory: Reports no additional respiratory complaints Physical Exam Vital Signs: Vital Signs: Last Vital Signs Temp 99.4 F 10/13/21 09:42 Pulse 83 10/13/21 09:42 Resp 15 10/13/21 09:42 BP 107/67 10/13/21 09:42 Pulse Ox 98 10/13/21 09:42 BMI result Body Mass Index 27.7 General: AO X 3, no acute distress Resp: CTA bilateral, no accessory muscles used CVS: S1,S2,RRR GI: soft, non tender, non distended Neuro: motor grossly intact, alert Psych: appropriate affect, appropriate insight ext: right hand swelling, erythema Objective Data Active Medications Acetaminophen (Acetaminophen 325 Mg Tablet) 650 mg PO Q6H PRN PRN Reason: Pain, Mild (Pain Scale 1-3) Atenolol (Atenolol 25 Mg Tablet) 25 mg PO DAILY [facility]; Protocol Last Admin: 10/13/21 07:21 Dose: 25 mg Documented by: RILEY Enoxaparin Sodium (Enoxaparin Sodium 40 Mg/0.4 Ml Syringe) 40 mg SUBCUT Q24H [facility] Last Admin: 10/13/21 07:22 Dose: 40 mg Documented by: RILEY Vancomycin HCl 1,000 mg/ (Sodium Chloride) 270 mls @ 270 mls/hr IV Q12H [facility] Melatonin (Melatonin 3 Mg Tablet) 6 mg PO BEDTIME PRN PRN Reason: Insomnia Pharmacy Consult (Consult Rx Vancomycin Dosing) 1 each MISCELLANE DAILY PRN PRN Reason: Consult order Senna (Sennosides 8.6 Mg Tablet) 17.2 mg PO BEDTIME PRN PRN Reason: Constipation Sodium Chloride (0.9 % Sodium Chloride Flush 3 Ml Syringe) 3 ml IVFLUSH QSHIFT [facility] Last Admin: 10/13/21 07:22 Dose: 3 ml Documented by: RILEY Labs CBC & Chem 7: 10/13/21 07:02 10/13/21 07:02 Labs: Laboratory Results - last 24 hr 10/12/21 10/12/21 10/12/21 19:43 19:43 19:43 MCV 92.4 MCH 34.0 H MCHC 36.8 H RDW 11.6 Plt Count 145 L MPV 10.5 Immature Gran % (Auto) 2.7 H Neut % (Auto) 89.4 H Lymph % (Auto) 2.6 L [place] % (Auto) 5.0 Eos % (Auto) 0.0 Baso % (Auto) 0.3 Lymph # (Auto) 0.7 L [place] # (Auto) 1.3 H Eos # (Auto) 0.0 Baso # (Auto) 0.1 Abs Immat Gran (auto) 0.74 H Absolute Neuts (auto) 24.1 H Absolute Nucleated RBC 0.000 Nucleated RBC % (auto) 0.0 Smear Tech's Comments VERIFIED Anion Gap 14 Estim Creat Clear Calc 88.6 Estimated GFR > 60 Random Glucose 127 H Lactic Acid 1.4 Calcium 9.1 D Total Bilirubin 1.2 H Direct Bilirubin 0.5 AST 22 ALT 24 Alkaline Phosphatase 58 Total Protein 7.6 Albumin 4.1 COVID-19 ([facility]) COVID-[employer] 10/12/21 10/13/21 10/13/21 19:43 07:02 07:02 MCV 93.8 MCH 33.3 H MCHC 35.4 RDW 11.5 Plt Count 117 L MPV 10.6 Immature Gran % (Auto) 1.9 H Neut % (Auto) 89.8 H Lymph % (Auto) 3.3 L [place] % (Auto) 4.1 Eos % (Auto) 0.7 Baso % (Auto) 0.2 Lymph # (Auto) 0.6 L [place] # (Auto) 0.7 Eos # (Auto) 0.1 Baso # (Auto) 0.0 Abs Immat Gran (auto) 0.32 H Absolute Neuts (auto) 15.2 H Absolute Nucleated RBC 0.000 Nucleated RBC % (auto) 0.0 Smear Tech's Comments Anion Gap 12 Estim Creat Clear Calc 105.2 Estimated GFR > 60 Random Glucose 117 H Lactic Acid Calcium 8.7 Total Bilirubin Direct Bilirubin AST ALT Alkaline Phosphatase Total Protein Albumin COVID-19 ([facility]) Negative COVID-19 Clin Com See Note Assessment and Plan (1) Cellulitis of hand: Status: Acute Assessment and Plan: 46-year-old male with a past medical history of hypertension , osteoarthritis, history of total right hip arthroplasty presented to the hospital with a chief complaint of right hand pain redness and swelling.? Noted to have right hand dorsum cellulitis.? Right hand dorsum cellulitis: hand x-ray showed no evidence of osteomyelitis.? Degenerative changes noted. history of MRSA Continue vancomycin warm compresses ortho following HTN atenolol DVT prophylaxis:? Lovenox Code status: Full code Quality Stroke Does the patient have a stroke diagnosis?: No VTE Prior VTE?: No VTE Risk Level:: Medical - moderate - high VTE Device Contraindication: Treatment Not Indicated VTE Drug Contraindication: N/A - Med Ordered
--- NOTE | 2021-10-13 14:38 | MHC.CM.PN ---
PT REPORTS HE LIVES AT HOME WITH HIS AND IS FULLY INDEPENDENT WITH CARE PT REPORTS HE HAS NO DME, NO SERVICES, WORKS AND DRIVES PT CONFIRMS HIS PCP IS [facility] FREITAS PT DECLINES TO COMPLETE A HCP TODAY BUT WILL TAKE THE DOCUMENT AND INFO HOME TO CONSIDER AT A LATER TIME. CURRENT DC PLAN IS HOME WITH NO SERVICES PT WILL ARRANGE TRANSPORTATION
--- NOTE | 2021-10-13 20:03 | PM.CNOR ---
History of Present Illness HPI Consult date: 10/13/21 Chief complaint: hand cellulitis Narrative: Patient presents the emergency department for evaluation of right hand redness, swelling and pain. He reports that he had a prior abrasion in the skin on the dorsal aspect in the 1st webspace. He is unsure how this happened but states that he does do a lot of work outside and relates to that. He has been on IV antibiotics since yesterday evening reports that he has a slight decrease in symptoms. Reports that he is able to perform range of motion without any pain of the digits and wrist. Review of Systems Review of Systems: Yes all other systems are reviewed and are negative PMF Past Medical History Medical History COVID-19 vaccine series completed History of MRSA infection Osteoarthritis Family History Family History Mother Cancer Surgical History Surgical History History of surgery on right wrist Hx of hand surgery Hx of hand surgery Social History Social History Housing: House Are you a primary vision care associate to a significant other at home: No Do you presently have visiting nurse or other home services: No Alcohol intake: never Patient Tobacco Use Status: Never used Tobacco Tobacco use type: Smokeless Tobacco Use of substances other than those prescribed or required for medical reasons: No Advance Directives: No Advance Directives Information Provided: No service: No Current occupational status: employed 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 Meds Allergies Allergy/AdvReac Type Severity Reaction Status Date / Time No Known Allergies Allergy Verified 09/27/21 09:03 Active Medications: Current Medications Acetaminophen (Acetaminophen 325 Mg Tablet) 650 mg PO Q6H PRN PRN Reason: Pain, Mild (Pain Scale 1-3) Atenolol (Atenolol 25 Mg Tablet) 25 mg PO DAILY [facility]; Protocol Last Admin: 10/13/21 07:21 Dose: 25 mg Documented by: Enoxaparin Sodium (Enoxaparin Sodium 40 Mg/0.4 Ml Syringe) 40 mg SUBCUT Q24H [facility] Last Admin: 10/13/21 07:22 Dose: 40 mg Documented by: Vancomycin HCl 1,000 mg/ (Sodium Chloride) 270 mls @ 270 mls/hr IV Q12H [facility] Melatonin (Melatonin 3 Mg Tablet) 6 mg PO BEDTIME PRN PRN Reason: Insomnia Pharmacy Consult (Consult Rx Vancomycin Dosing) 1 each MISCELLANE DAILY PRN PRN Reason: Consult order Senna (Sennosides 8.6 Mg Tablet) 17.2 mg PO BEDTIME PRN PRN Reason: Constipation Sodium Chloride (0.9 % Sodium Chloride Flush 3 Ml Syringe) 3 ml IVFLUSH QSHIFT [facility] Last Admin: 10/13/21 16:38 Dose: 3 ml Documented by: Physical Exam Vital Signs: Vital Signs: Last Vital Signs Temp 99.4 F 10/13/21 09:42 Pulse 83 10/13/21 09:42 Resp 15 10/13/21 09:42 BP 107/67 10/13/21 09:42 Pulse Ox 98 10/13/21 09:42 BMI result Body Mass Index 27.7 Const: General: cooperative, healthy appearing and no acute distress Resp: Effort & Inspection: normal respiratory effort and able to speak in complete sentences Cardio: Rate: regular rate Peripheral pulses: Peripheral pulses 2+ throughout GI: Palpation (GI): Soft to palpation Skin: Lesions: no lesions Rashes: no rashes Extrem: Other: Right hand small laceration in the volar aspect of the 1st webspace just adjacent to the 2nd MCP. There is surrounding erythema and edema on the dorsal aspect of the hand with lymphangitic streaking. Patient is able to demonstrate full digit and wrist range of motion. No fluctuant mass noted. Sensation is intact. Capillary refill is brisk. Radial pulse intact. Results Labs Result Diagrams: 10/14/21 06:37 10/14/21 07:10 Labs: Abnormal lab results 10/12/21 10/12/21 10/13/21 Range/Units 19:43 19:43 07:02 WBC 27.0 H 16.9 H (4.8-10.8) X10*3/uL RBC 4.47 L 4.06 L (4.60-5.80) X10*6/uL Hgb 13.5 L (14.0-18.0) g/dl Hct 41.3 L 38.1 L (42.0-52.0) % MCH 34.0 H 33.3 H (27.0-33.0) pg MCHC 36.8 H (31.0-36.0) g/dl Plt Count 145 L 117 L (160-400) X10*3/uL Immature Gran % (Auto) 2.7 H 1.9 H (0.0-0.4) % Neut % (Auto) 89.4 H 89.8 H (45-73) % Lymph % (Auto) 2.6 L 3.3 L (20-40) % Lymph # (Auto) 0.7 L 0.6 L (1.2-4.9) X10*3/uL [place] # (Auto) 1.3 H (0.1-1.2) X10*3/uL Abs Immat Gran (auto) 0.74 H 0.32 H (0.00-0.03) X10*3/uL Absolute Neuts (auto) 24.1 H 15.2 H (2.0-8.3) x10*3/uL Sodium 132 L (135-145) mmol/L Random Glucose 127 H (60-115) mg/dL Total Bilirubin 1.2 H (0.0-1.0) mg/dL 10/13/21 Range/Units 07:02 WBC (4.8-10.8) X10*3/uL RBC (4.60-5.80) X10*6/uL Hgb (14.0-18.0) g/dl Hct (42.0-52.0) % MCH (27.0-33.0) pg MCHC (31.0-36.0) g/dl Plt Count (160-400) X10*3/uL Immature Gran % (Auto) (0.0-0.4) % Neut % (Auto) (45-73) % Lymph % (Auto) (20-40) % Lymph # (Auto) (1.2-4.9) X10*3/uL [place] # (Auto) (0.1-1.2) X10*3/uL Abs Immat Gran (auto) (0.00-0.03) X10*3/uL Absolute Neuts (auto) (2.0-8.3) x10*3/uL Sodium 134 L (135-145) mmol/L Random Glucose 117 H (60-115) mg/dL Total Bilirubin (0.0-1.0) mg/dL H & H 10/12/21 10/13/21 Range/Units 19:43 07:02 Hgb 15.2 13.5 L (14.0-18.0) g/dl Hct 41.3 L 38.1 L (42.0-52.0) % All other labs normal. Assessment and Plan (1) Cellulitis of hand: Status: Acute Mr. Padilla is a 46-year-old male who presented to the emergency department for right hand cellulitis. He states that he began noticing an increase in redness in that hand on Friday10/08/2021. He has been on IV antibiotics since yesterday evening and states that he has noticed and improvement in his redness and edema. He reports that he has no pain with finger range of motion or wrist range of motion. Redness is located over the dorsal aspect of the hand with an abrasion in the 1st webspace. There is no concern for tenosynovitis at this time. Ultrasound of the right hand is negative for any abscess. Would recommend warm compress/soaks and continue wit IV antibiotics with transition to p.o. antibiotics. Patient was previously scheduled for a total joint replacement but was postponed due to COVID concerns at the hospital. The patient will follow up outpatient for further evaluation. He will have to clear the cellulitis before proceeding with rescheduling total joint. Procedures Date of Service Date of Service: 10/13/21
[2021-10-13 21:10] VITALS: BP 114/49; PULSE 94; RESP 14; TEMP 37.2; O2SAT 98
[2021-10-13] MEDS: vancomycin HCL 1,000 MG in 0.9 % Sodium Chloride 250 ML 270 MG IV (22:37)
[2021-10-14] VITALS: BP 118/54; PULSE 82; RESP 18; TEMP 36.9
[2021-10-14 06:29] VITALS: BP 118/62; PULSE 80; RESP 16; TEMP 36.9; O2SAT 98
[2021-10-14 07:06] LABS: Hematocrit 36.1 % (42.0-52.0); Hemoglobin 12.6 g/dl (14.0-18.0); Mean Corpuscular HGB Conc 34.9 g/dl (31.0-36.0); Mean Corpuscular Hemoglobin 33.2 pg (27.0-33.0); Mean Corpuscular Volume 95.3 fL (80.0-98.0); Mean Platelet Volume 10.9 fL (9.4-12.4); Platelet Count 114 X10*3/uL (160-400); Red Blood Count 3.79 X10*6/uL (4.60-5.80); Red Cell Distribution Width 11.5 % (11.0-16.0); White Blood Count 9.6 X10*3/uL (4.8-10.8)
[2021-10-14 07:20] LABS: Anion Gap 12 (12-20); Blood Urea Nitrogen 9 mg/dL (9-16); Calcium 8.4 mg/dL (8.4-10.2); Carbon Dioxide 25 mmol/L (22-29); Chloride 103 mmol/L (96-108); Creatinine Clr Calc Pharmacy 103.1; Estimated Glomerular Filt Rate > 60; Glucose Fasting 140 mg/dL (60-99); Potassium 3.5 mmol/L (3.3-5.1); Sodium 136 mmol/L (135-145)
[2021-10-14 08:00] VITALS: BP 115/72; PULSE 72; RESP 16; O2SAT 98
[2021-10-14 08:19] LABS: Vancomycin Trough 7.2 mcg/mL (10.0-20.0)
[2021-10-14 08:21] LABS: Creatinine Clr Calc Pharmacy 110.6; Estimated Glomerular Filt Rate > 60
[2021-10-14] MEDS: atenoloL 25 MG TABLET PO (09:45)
[2021-10-14] MEDS: 0.9 % Sodium Chloride Flush 3 ML SYRINGE IVFLUSH (09:45)
[2021-10-14] MEDS: Enoxaparin Sodium 40 MG/0.4 ML SYRINGE SUBCUT (09:46)
[2021-10-14] MEDS: vancomycin HCL 1,250 MG in 0.9 % Sodium Chloride 250 ML 166.67 MG IV (09:49)
--- NOTE | 2021-10-14 10:43 | PM.DS ---
DS: Providers Provider Date of Service: 10/14/21 Date of admission: 10/12/21 22:54 Primary care physician: Zabrina Goetz MD Consults: 10/12/21 22:59 Consult to Orthopedics Routine Consulting Provider: Haley Renee Reason for consultation: hand cellulitis DS: Diagnosis Discharge Diagnosis (1) Cellulitis of hand: Status: Acute DS: Summary Hospital Course Hospital Course: patient was admitted for right hand cellulitis. he was treated with vancomycin. xray was negative for OM, US negative for abscess. was seen by ortho who recommended warm soaks, no surgical intervention needed. symtpoms significantly improved. WBC returned to normal. patient will be discharged on 7 more days of bactrim and keflex. he will continue warm soaks and follow up with ortho. Time Spent with Patient Time attestation: Total time spent providing and/or coordinating discharge services: Discharge coordination time: Greater than 30 minutes Quality: Stroke Does the patient have a stroke diagnosis?: No Physical Exam Vital Signs: Vital Signs: Last Vital Signs Temp 98.4 F 10/14/21 06:29 Pulse 80 10/14/21 06:29 Resp 16 10/14/21 06:29 BP 118/62 10/14/21 06:29 Pulse Ox 98 10/14/21 06:29 BMI result Body Mass Index 27.7 General: AO X 3, no acute distress Resp: CTA bilateral, no accessory muscles used CVS: S1,S2,RRR GI: soft, non tender, non distended Neuro: motor grossly intact, alert Psych: appropriate affect, appropriate insight right hand improved rom, swelling and erythema DS: Data Data Completed and Pending Labs on day of discharge: Laboratory Results - last 24 hr 10/14/21 10/14/21 10/14/21 06:37 06:37 07:10 WBC 9.6 RBC 3.79 L Hgb 12.6 L Hct 36.1 L MCV 95.3 MCH 33.2 H MCHC 34.9 RDW 11.5 Plt Count 114 L MPV 10.9 Absolute Nucleated RBC 0.000 Nucleated RBC % (auto) 0.0 Sodium 136 Potassium 3.5 Chloride 103 Carbon Dioxide 25 Anion Gap 12 BUN 9 Creatinine 1.04 0.97 Estim Creat Clear Calc 103.1 110.6 Estimated GFR > 60 > 60 Fasting Glucose 140 H Calcium 8.4 Vancomycin Trough 10/14/21 07:10 WBC RBC Hgb Hct MCV MCH MCHC RDW Plt Count MPV Absolute Nucleated RBC Nucleated RBC % (auto) Sodium Potassium Chloride Carbon Dioxide Anion Gap BUN Creatinine Estim Creat Clear Calc Estimated GFR Fasting Glucose Calcium Vancomycin Trough 7.2 L Preliminary micro results at discharge 10/13/21 07:03 Blood Culture - Preliminary Blood - Venous No growth after 24 hours. 10/13/21 07:02 Blood Culture - Preliminary Blood - Venous No growth after 24 hours. 10/12/21 19:43 Blood Culture - Preliminary Blood - Venous No growth after 24 hours. 10/12/21 19:43 Blood Culture - Preliminary Blood - Venous No growth after 24 hours. Discharge Plan Discharge Patient Disposition: Home, Self-Care Discharge Diagnosis: cellulitis of hand Referrals: Shahid Barajas MD [Physician] - 1 Week Zabrina Goetz MD [Primary Care Provider] - 1 Week Discharge Medications: New sulfamethoxazole-trimethoprim [Bactrim DS] 800-160 mg tablet 1 tab PO Q12H Qty: 14 RF: 0 cephalexin 500 mg capsule 500 mg PO Q12H Qty: 14 RF: 0 Continued atenolol 25 mg tablet 25 mg PO DAILY 90 Days Qty: 90 RF: 0 Discharge Orders: Discharge Order (Routine); Ordered 10/14/21 Ordered By: Pablito Mac Diet: advance to usual diet Activity on Discharge: As tolerated Stand Alone Forms: Patient Portal Discharge page Care Plan Goals: recovery Health Concerns: hand cellulitis Plan of Treatment: keflex and bactrim, follow up with ortho, warm soaks Assessment: see above
--- NOTE | 2021-10-14 10:56 | MHC.CM.PN ---
PT TO DC HOME WITH NO SERVICES. PT WILL ARRANGE TRANSPORT
[2021-10-14 14:28] VITALS: BP 125/64; PULSE 80; RESP 15; TEMP 37; O2SAT 100
[2021-10-14 16:00] VITALS: BP 140/72; PULSE 84; RESP 16; O2SAT 98
== END 2021-10-14 19:10 | disposition home or self-care (01) | DRG 603 ==
LOC: HO.ED 20:48 → HO.EDOVER 23:08
PROVIDERS: Admitting Provider Hospitalist; Emergency Provider Internal Medicine; PCP Internal Medicine; Visit Provider Internal Medicine
DX: L03.113 Cellulitis of right upper limb (principal); I10 Essential (primary) hypertension; Z20.822 Contact with and (suspected) exposure to COVID-19; Z96.641 Presence of right artificial hip joint; Z86.14 Personal history of Methicillin resistant Staphylococcus aureus infection; Z79.899 Other long term (current) drug therapy
CPT/HCPCS: 36415; 73120; 76882; 80048; 80053; 80202; 82248; 82565; 83605; 85025; 85027; 87040; 87635; 90471; 90715; 96365; 96375; 99218; 99285; J0696; J1650; J2270; J3370

== ENCOUNTER → 2021-10-31 12:45 | Outpatient (BNVA) | payer OTHER, SELFPAY | PROVIDERS: PCP Internal Medicine; Referring Provider Internal Medicine; Visit Provider Internal Medicine ==

== ENCOUNTER → 2022-01-02 14:53 | Outpatient (REF) | payer OTHER, SELFPAY ==
--- NOTE | 2022-01-02 15:13 | CA_ITS ---
Transthoracic Echocardiogram Patient (Last, First, Middle): Win Padilla J Gender: Male Date of : 1975 Age: 46 Procedure Date: 01/02/2022 Procedure Type: Transthoracic Echocardiogram Location: OP Height: 190.5 cm Weight: 97.98 kg BSA: 2.27 m2 Heart Rate: bpm BP: 131 / 84 mmHg Barman: LUBA Referring MD: Lex Howard MD Backside Grinder: Rhys Sheehan MD Symptoms: I45.10 - Unspecified right bundle-branch block Study Quality: Fair ECG Rhythm: Sinus Conclusions: - Essentially normal study Findings Left Ventricle Normal left ventricular size, thickness, and systolic function. The visually estimated ejection fraction is between 60-65%. Spectral Doppler is indicative of a normal filling pattern. Right Ventricle Normal right ventricular cavity size and systolic function. Atria Both atria are normal in size. Interatrial shunt cannot be excluded. Aortic Valve The aortic valve structure and function is likely normal. There is no aortic valve stenosis. There is no aortic valve regurgitation. Mitral Valve Normal mitral valve structure and function. There is trace mitral valve regurgitation. There is no mitral valve stenosis. Pulmonic Valve The pulmonic valve was not well visualized. Tricuspid Valve Likely normal tricuspid valve structure and function. There is trace tricuspid valve regurgitation. The right ventricular systolic pressure is normal. The right ventricular systolic pressure is 10 mmHg. Normal right atrial pressure. Great Vessels All visible segments of the aorta are normal in size. The pulmonary artery was not well visualized. Venous The inferior vena cava is normal in size and collapses greater than 50% with inspiration. Pericardium/Pleural There is no evidence of pericardial effusion. Prior Study Comparison No prior study available for comparison. Measurements 2D Linear Measurements IVSd: 1.12 0.6-0.9/0.6-1.0 cm LVIDd: 4.61 3.9-5.3/4.2-5.9 cm LVIDd Index: 2.03 2.4-3.2/2.2-3.1 cm/m2 LVIDs: 2.93 2.0-3.6 cm LVPWd: 1.10 0.7-1.1 cm LA Diam: 4.10 2.7-3.8/3.0-4.0 cm LAIDs Index: 1.81 1.5-2.3 cm/m2 LV Mass: 229.47 67-162/88-224 g LV Mass Index: 101.09 43-95/49-115 g/m2 LVOT Diam: 2.10 3.0+(-)1.3 cm 2D Systolic Function EF 4C: 66.50 >55% EF 2C: 56.90 >55% EF BiP: 61.50 >55% Mitral Valve MV Pk E: 0.88 MV PK A: 0.72 MV Decel Time: 206.00 E/A: 1.20 E'Lateral: 13.60 E'Medial: 12.10 E/E' Med: 7.20 E/E' Lat: 6.40 PHT: 60.00 MVA PHT: 3.67 Decel [place]: 4.24 Aortic Valve AoV Pk Johnny: 1.53 AoV Mn Johnny: 1.12 AoV VTI: 0.31 AoV Pk Grad: 9.00 Aov Mn Grad: 6.00 LUCIO Cont.VTI: 2.49 LVOT LVOT Pk Johnny: 1.22 LVOT Mn Johnny: 0.82 LVOT VTI: 0.22 LVOT Pk Grad: 6.00 LVOT Mn Grad: 3.00 LVOT Diam: 2.10 LVOT Area: 3.46 Diastolic Function MV Pk E: 0.88 MV Pk A: 0.72 E/A: 1.20 E'Medial: 12.10 E/E' Med: 7.20 E' Laterial: 13.60 E/E' Lat: 6.40 Right Ventricle TAPSE (mm): 30.00 TVS' Johnny: 13.40 Tricuspid Valve TR Pk Johnny: 1.32 TR Pk Grad: 7.00 RA Press: 3.00 RVSP: 10.00 Great Vessels Aorta Sinus of Valsalva: 3.07 2.0-3.[address] [place]: 2.35 1.7-3.4 cm Ao Asc: 2.90 2.1-3.4 cm Ao Arch: 3.00 Updated in Other Vendor System with Status of Final Rhys Sheehan MD electronically signed on 01/03/2022 9:35:32 AM with status of Final
== END ==
LOC: HO.CARD 14:53
PROVIDERS: Visit Provider Internal Medicine
DX: Z01.810 Encounter for preprocedural cardiovascular examination (principal); I45.10 Unspecified right bundle-branch block; R06.02 Shortness of breath
CPT/HCPCS: 93306

== ENCOUNTER → 2022-01-14 13:55 | Outpatient (BNVA) | payer OTHER, MEDICAID, SELFPAY | PROVIDERS: PCP Internal Medicine; Referring Provider Internal Medicine; Visit Provider Internal Medicine | DX: Z13.89 Encounter for screening for other disorder (principal) ==

== ENCOUNTER → 2022-02-08 10:28 | Outpatient (BNVA) | payer OTHER, SELFPAY | PROVIDERS: PCP Internal Medicine; Visit Provider Physician Assistant | DX: M16.11 Unilateral primary osteoarthritis, right hip (principal) ==

== ENCOUNTER 2022-03-05 05:58 | Inpatient (IN) | payer OTHER, SELFPAY ==
[2022-02-06 13:31] VITALS: BMI 26.6
[2022-02-08 11:30] LABS: MANUAL DIFF FLAG NO
[2022-02-08 11:51] LABS: Basophils Percent Auto 0.4 % (0-2); Eosinophils Absolute Auto 0.1 X10*3/uL (0.0-0.4); Eosinophils Percent Auto 1.2 % (0-4); Hematocrit 41.8 % (42.0-52.0); Hemoglobin 14.4 g/dl (14.0-18.0); Imm Gran Abs Auto 0.02 X10*3/uL (0.00-0.03); Imm Gran Pct Auto 0.3 % (0.0-0.4); Lymphocytes Absolute Auto 1.8 X10*3/uL (1.2-4.9); Mean Corpuscular HGB Conc 34.4 g/dl (31.0-36.0); Mean Corpuscular Hemoglobin 32.1 pg (27.0-33.0); Mean Corpuscular Volume 93.3 fL (80.0-98.0); Mean Platelet Volume 10.3 fL (9.4-12.4); Monocytes Absolute Auto 0.6 X10*3/uL (0.1-1.2); Monocytes Percent Auto 8.4 % (2-11); Neutrophils Absolute Auto 4.2 x10*3/uL (2.0-8.3); Neutrophils Percent Auto 62.7 % (45-73); Platelet Count 188 X10*3/uL (160-400); Red Blood Count 4.48 X10*6/uL (4.60-5.80); Red Cell Distribution Width 11.9 % (11.0-16.0); White Blood Count 6.7 X10*3/uL (4.8-10.8)
[2022-02-08 12:20] LABS: Anion Gap 12 (12-20); Blood Urea Nitrogen 10 mg/dL (9-16); Calcium 9.5 mg/dL (8.4-10.2); Carbon Dioxide 27 mmol/L (22-29); Chloride 103 mmol/L (96-108); Creatinine Clr Calc Pharmacy 113.7; Estimated Glomerular Filt Rate > 60; Glucose Random 99 mg/dL (60-115); Potassium 3.8 mmol/L (3.3-5.1); Sodium 138 mmol/L (135-145)
--- NOTE | 2022-02-11 09:09 | HO.ANESPROP2 ---
Documented by User: Kiana Chan NP 02/19/22 13:40 HPI - Anesthesia Eval Consult details Narrative: 46yo M for Right Hip Total Replacement 03/05/22 Cardiac cleared at low risk (sent for BP and abn EKG) [facility] Active Problems Active Problems: All Active Problems (Updated 02/08/22 @ 13:57 by Roxana Zamorano) Abscess (Acute) Wound check, abscess (Acute) Primary osteoarthritis of right hip (Acute) Elevated blood pressure reading (Acute) Encounter for general adult medical examination with abnormal findings (Acute) Lipid disorder (Acute) Impaired fasting blood sugar (Acute) Pre-op evaluation (Acute) Hypertension, essential (Acute) S/P total right hip arthroplasty (Acute) Cardiac arrhythmia (Acute) Abnormal EKG (Acute) Cellulitis of hand (Acute) RBBB (Acute) Preoperative cardiovascular examination (Acute) Shortness of breath (Acute) Past Medical History Medical History COVID-19 vaccine series completed History of MRSA infection Osteoarthritis Primary localized osteoarthritis of right hip Family History Family History Mother Cancer Family history of problems with anesthesia: No Surgical History Surgical History History of surgery on right wrist Hx of hand surgery Hx of hand surgery History of Problems with Anesthesia: No Social History Social History Housing: House Are you a primary childcare center administrator to a significant other at home: No Do you presently have visiting nurse or other home services: No Alcohol intake: never Patient Tobacco Use Status: Never used Tobacco Tobacco use type: Smokeless Tobacco Use of substances other than those prescribed or required for medical reasons: No Currently Displaying Signs/Symptoms of Drug Intoxication Withdrawal: No Have you been hit, kicked, punched, or otherwise hurt by someone within the past year? 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 Meds Allergies Allergy/AdvReac Type Severity Reaction Status Date / Time No Known Allergies Allergy Verified 02/28/22 12:47 Exam Exam Date and Time: February 11, 2022 0909 Height,Weight and Vital Signs: Height 6 ft 3.5 in Weight 97.976 kg Pertinent Lab Results Pertinent Lab Results: Laboratory Tests 02/08/22 02/08/22 02/08/22 11:20 11:28 11:28 WBC 6.7 RBC 4.48 L Hgb 14.4 Hct 41.8 L MCV 93.3 MCH 32.1 MCHC 34.4 RDW 11.9 Plt Count 188 D MPV 10.3 Immature Gran % (Auto) 0.3 Neut % (Auto) 62.7 Lymph % (Auto) 27.0 [place] % (Auto) 8.4 Eos % (Auto) 1.2 Baso % (Auto) 0.4 Lymph # (Auto) 1.8 [place] # (Auto) 0.6 Eos # (Auto) 0.1 Baso # (Auto) 0.0 Abs Immat Gran (auto) 0.02 Absolute Neuts (auto) 4.2 Absolute Nucleated RBC 0.000 Nucleated RBC % (auto) 0.0 Sodium 138 Potassium 3.8 Chloride 103 Carbon Dioxide 27 Anion Gap 12 BUN 10 Creatinine 0.97 Estim Creat Clear Calc 113.7 Estimated GFR > 60 Random Glucose 99 Calcium 9.5 D Blood Type A Negative Antibody Screen NEGATIVE Narrative Narrative: EKG 09/2021 Vent. Rate : 083 BPM ? ? Atrial Rate : 083 BPM ?? P-R Int : 150 ms? QRS Dur : 124 ms ? ? QT Int : 376 ms ? ? ? P-R-T Axes : 084 087 049 degrees ?? QTc Int : 441 ms ? Normal sinus rhythm with sinus arrhythmia Right bundle branch block Abnormal ECG No previous ECGs available ECHO 12/2021 Conclusions: - Essentially normal study ? Findings Left Ventricle Normal left ventricular size, thickness, and systolic function. The visually estimated ejection fraction is between 60-65%.? Spectral Doppler is indicative of a normal filling pattern. Assessment and Plan Assessment Anesthesia Assessment: Chart Reviewed Final Anesthetic Review Family History of Problems with Anesthesia: No History of Problems with Anesthesia: No Documented by User: Molina Johnosn MD 03/05/22 17:13 PMFSH Past Medical History Medical History COVID-19 vaccine series completed History of MRSA infection Osteoarthritis Primary localized osteoarthritis of right hip Family History Family History Mother Cancer Surgical History Surgical History History of surgery on right wrist Hx of hand surgery Hx of hand surgery Social History Social History Housing: House Are you a primary childcare center administrator to a significant other at home: No Do you presently have visiting nurse or other home services: No Alcohol intake: never Patient Tobacco Use Status: Never used Tobacco Tobacco use type: Smokeless Tobacco Use of substances other than those prescribed or required for medical reasons: No Currently Displaying Signs/Symptoms of Drug Intoxication Withdrawal: No Have you been hit, kicked, punched, or otherwise hurt by someone within the past year? 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 Meds Allergies Allergy/AdvReac Type Severity Reaction Status Date / Time No Known Allergies Allergy Verified 02/28/22 12:47 Exam Airway Mallampati Class: III TM Dist: >3cm Neck ROM: Full Loose/Missing/Broken Teeth: Yes (Chipped teeth , poor dentition ) Heart: S1,S2 Lungs: b/l breath sounds Assessment and Plan Assessment Anesthesia Assessment: Anesthesia Plan Discussed Final Anesthetic Review NPO: Yes ASA Class: III Final Preanesthetic Review: Meds/Allgs Chart Reviewed, Consent Obtained/Reviewed and Anes Risks/Benef Reviewed Patient Risk: Intermediate Procedure Risk: Intermediate Anesthetic Plan Anesthetic Plan: GA Disposition: Inp. Admit - Standard Bed
[2022-03-05] VITALS (21 sets, daily range): BP systolic 124–147; BP diastolic 64–84; PULSE 63–85; RESP 14–20; TEMP 36.1–37.1; O2SAT 97–100
--- NOTE | ~2022-03-05 | XR_ITS ---
EXAMINATION: XR PELVIS CLINICAL INFORMATION: Status post total right hip arthroplasty COMPARISON: AP pelvis 07/26/2021 TECHNIQUE: AP view of the pelvis. FINDINGS: There is total right hip arthroplasty with prosthetic components in satisfactory alignment. There is no periprosthetic loosening or fracture. There is mild flattening of left supralateral femoral head with periarticular spurring suggestive of degenerative arthritic changes. No visible acute fracture or dislocation seen. XR/XR pelvis 1-2V IMPRESSION: Total right hip arthroplasty in satisfactory alignment. Mild degenerative changes left hip joint.
[2022-03-05] MEDS: oxyCODONE HCl ER 10 MG TAB.ER.12H PO ×2 (06:28→19:49)
[2022-03-05 06:30] LABS: COVID-19 Test Negative (Negative)
[2022-03-05 06:35] LABS: MANUAL DIFF FLAG NO
[2022-03-05 06:37] LABS: Basophils Percent Auto 0.4 % (0-2); Eosinophils Absolute Auto 0.1 X10*3/uL (0.0-0.4); Eosinophils Percent Auto 2.5 % (0-4); Hematocrit 40.1 % (42.0-52.0); Hemoglobin 13.8 g/dl (14.0-18.0); Imm Gran Abs Auto 0.02 X10*3/uL (0.00-0.03); Imm Gran Pct Auto 0.4 % (0.0-0.4); Lymphocytes Absolute Auto 2.1 X10*3/uL (1.2-4.9); Mean Corpuscular HGB Conc 34.4 g/dl (31.0-36.0); Mean Corpuscular Hemoglobin 32.2 pg (27.0-33.0); Mean Corpuscular Volume 93.7 fL (80.0-98.0); Mean Platelet Volume 9.8 fL (9.4-12.4); Monocytes Absolute Auto 0.6 X10*3/uL (0.1-1.2); Monocytes Percent Auto 10.5 % (2-11); Neutrophils Absolute Auto 2.4 x10*3/uL (2.0-8.3); Neutrophils Percent Auto 46.2 % (45-73); Platelet Count 172 X10*3/uL (160-400); Red Blood Count 4.28 X10*6/uL (4.60-5.80); Red Cell Distribution Width 12.1 % (11.0-16.0); White Blood Count 5.2 X10*3/uL (4.8-10.8)
[2022-03-05] MEDS: vancomycin HCL 1,500 MG in 0.9 % Sodium Chloride 500 ML 333.33 MG IV ×2 (06:50→18:22)
[2022-03-05 06:54] LABS: Anion Gap 10 (12-20); Blood Urea Nitrogen 7 mg/dL (9-16); Calcium 8.9 mg/dL (8.4-10.2); Carbon Dioxide 27 mmol/L (22-29); Chloride 106 mmol/L (96-108); Creatinine Clr Calc Pharmacy 116.1; Estimated Glomerular Filt Rate > 60; Glucose Random 113 mg/dL (60-115); Potassium 3.9 mmol/L (3.3-5.1); Sodium 139 mmol/L (135-145)
[2022-03-05] MEDS: Lactated Ringers 1,000 ML 100 ML IVCONT ×3 (06:56→22:17)
--- NOTE | 2022-03-05 07:35 | MHC.SHP ---
Pre-Procedural Eval Section A Date of Service: 03/05/22 The patient is an INPATIENT: No Changes since office visit: Yes Patient answered all questions; No Cold of Flu in the past 2 weeks, No New Medical Problems and No Changes in Medication The History & Physical has been completed within 30 days and I have reviewed it.: Yes Section B Chief Complaint: PT SHAGUFTA Allergies: Allergies Allergy/AdvReac Type Severity Reaction Status Date / Time No Known Allergies Allergy Verified 02/28/22 12:47 Plan I have reviewed the history and physical and performed a pertinent physical examination on my patient. No changes have occurred unless specified.
--- NOTE | 2022-03-05 10:19 | PM.OP ---
Brief Operative Note Date of Service: 03/05/22 Pre-op diagnosis: Right hip OA Post-op diagnosis: same Procedure: Right SHAGUFTA Implants: Juliana Trident2 60mm cup with elevated liner [employer] Triathalon #8 132 deg with +2.5 36 ceramic femoral head Surgeon: Shahid Barajas MD Anesthesia: GETA and local Was an Button Pusher used for this Procedure?: Yes Button Pusher: Yamilka Gutierrez Estimated blood loss (mL): 150 IV fluids (mL): 1,000 Pathology: other Condition: stable Disposition: PACU
--- NOTE | 2022-03-05 10:29 | W.PM.OPN ---
Operative Note Operative Note Date of Service: 03/05/22 Narrative: Date of Service: 03/05/22 Pre-op diagnosis: Right hip OA Post-op diagnosis: same Procedure: Right SHAGUFTA Implants: [place] Trident2 60mm cup with elevated liner Juliana Triathalon #8 132 deg with +2.5 36 ceramic femoral head Surgeon: Shahid Barajas MD Anesthesia: GETA and local Was an Welder Boilermaker used for this Procedure?: Yes Welder Boilermaker: Yamilka Gutierrez Estimated blood loss (mL): 150 IV fluids (mL): 1,000 Pathology: other Condition: stable Disposition: PACU Procedure in detail: Patient was brought into the operating room and placed in the left lateral decubitus position. All bony prominences were well padded and the limb was prepped and draped in standard sterile fashion. Time-out was called to identify proper site procedure proper surgeon IV antibiotics and 1 g of transaxemic acid were administered. I began by making a curvilinear incision over the posterolateral aspect of the greater trochanter. Dissection was taken down to the tensor fascia which was incised in line with the incision and a Charnley retractor was placed. Cautery was used to maintain hemostasis. A werewolf device was also used. The hip was internally rotated and the external rotators were identified. The vessels were cauterized and a full-thickness capsular/external rotator layer was developed starting just proximal to the piriformis. This layer was tagged and a dull Hohmann retractor was placed underneath the neck in the hip was dislocated. The head was A neck cut was made 1 cm proximal to the lesser trochanter and the head and neck were removed and measured as 56mm on the back table. The head was eburnated and defromed. I started with a 48mm reamer and sequentially reamed up to a size 60 and impacted a 60mm cup at approximately 45 degrees of inclination and 25 degrees of version. I then placed an elevated liner and turned my attention to the femur. I identified the piriformis insertion and used this as a starting point for my abbey cutter. The medius tendon was protected with a Hibs retractor. I then used a Charnley awl to identify the canal and a curved curette to remove the lateral bone. I irrigated copiously. I then sequentially broached in the patient's natural version to a size 8. He had a long neck and so the 8 was 2 cm above the lesser which allowed me to trial with a 2.5 head., Placing a #7 would have run the3 risk of requiring a +8 collared head which I did not want to implant in a 46 yo. I placed my trial implants and trailed a 2.5 head. I took the hip through range of motion. I was very satisfied with the stability and length. Therefore I removed all instrumentation and copiously irrigated. I placed my final femoral implant and again took the hip through range of motion and was satisfied with the +2.5 with regards to stability and length. I then irrigated for 3 minutes with iodine and placed 1 g of local tranaxemic acid. I then performed a capsular closure with 2.0 fiberwire, Radha's fascia with 0 Vicryl, subcuticular with 2-0 Vicryl and the skin with marry. Patient was placed into a sterile dressing. Radiographs were obtained at the completion of the case and I was satisfied with the component position. Patient was extubated brought to the recovery room in stable condition.
[2022-03-05] MEDS: fentaNYL citrate/PF 100 MCG/2 ML VIAL 25 MCG IVPUSH ×4 (10:32→10:47)
[2022-03-05] MEDS: HYDROmorphone HCl 0.5 MG/0.5 ML SYRINGE 0.25 MG IVPUSH ×2 (11:02→11:07)
--- NOTE | 2022-03-05 11:21 | PHA.MEDREC ---
Pharmacy Consult ? Medication Reconciliation Pharmacy has revewed the medication reconciliation compelted by nursing.
[2022-03-05] MEDS: HYDROmorphone HCl 1 MG/ML SYRINGE 0.25 MG IVPUSH (13:09)
--- NOTE | 2022-03-05 13:18 | PM.IMCN ---
History of Present Illness Data of Consult Service Date: 03/05/22 Requesting physician: Shahid Barajas Primary Care Provider: Zabrina Goetz MD [facility] Reason for consult: Med management ?46-year-old male with a past medical history of hypertension , osteoarthritis: Patient came to the hospital because she he has on and off hip pain due to osteoarthritis and seen by Ortho out patiently and decided for hip arthroplasty. patient be status post right hip arthroplasty. Denies any new complaint of chest pain or shortness of breath or abdominal pain or fever or chills or nausea or vomiting Denies any cough Denies any weakness or numbness. has hip soreness in the operation area. Review of Systems Review of Systems: As above. Yes all other systems are reviewed and are negative [facility] Medical History COVID-19 vaccine series completed History of MRSA infection Osteoarthritis Primary localized osteoarthritis of right hip Family History Mother Cancer Surgical History History of surgery on right wrist Hx of hand surgery Hx of hand surgery Social History Housing: House Are you a primary physician assistant primary care to a significant other at home: No Do you presently have visiting nurse or other home services: No Alcohol intake: never Patient Tobacco Use Status: Never used Tobacco Tobacco use type: Smokeless Tobacco Use of substances other than those prescribed or required for medical reasons: No Have you been hit, kicked, punched, or otherwise hurt by someone within the past year? 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 Allergies Allergy/AdvReac Type Severity Reaction Status Date / Time No Known Allergies Allergy Verified 02/28/22 12:47 Active Medications: Current Medications Acetaminophen (Acetaminophen 325 Mg Tablet) 650 mg PO Q6H PRN PRN Reason: Pain, Mild (Pain Scale 1-3) Aspirin (Aspirin 325 Mg Tablet) 325 mg PO BID [facility] Celecoxib (Celecoxib 200 Mg Capsule) 200 mg PO BID [facility] Docusate Sodium (Docusate Sodium 100 Mg Capsule) 100 mg PO BID [facility] Hydromorphone HCl (Hydromorphone Hcl 1 Mg/Ml Syringe) 0.25 mg IVPUSH Q4H PRN; Protocol PRN Reason: Pain, Severe (Pain Scale 7-10) Last Admin: 03/05/22 13:09 Dose: 0.25 mg Lactated Ringer's (Lr) 1,000 mls @ 100 mls/hr IVCONT .Q10H DAVON Last Admin: 03/05/22 11:52 Dose: 100 mls/hr Vancomycin HCl 1,500 mg/ (Sodium Chloride) 500 mls @ 333.333 mls/hr IV POSTOP ONE Stop: 03/05/22 20:29 Ondansetron HCl (Ondansetron Hcl 4 Mg/2 Ml Vial) 4 mg IVPUSH Q8H PRN PRN Reason: Nausea and Vomiting Oxycodone HCl (Oxycodone Hcl Immed Release 5 Mg Tablet) 5 mg PO Q4H PRN PRN Reason: Pain, Moderate (Pain Scale 4-6 Oxycodone HCl (Oxycodone Hcl Er 10 Mg Tab.Er.12h) 10 mg PO BID [facility] Sodium Chloride (0.9 % Sodium Chloride Flush 3 Ml Syringe) 3 ml IVFLUSH QSHIFT [facility] Physical Exam Vital Signs and Narrative: Vital Signs: Last Vital Signs Temp 97.8 F 03/05/22 12:28 Pulse 70 03/05/22 12:28 Resp 18 03/05/22 12:28 BP 138/67 03/05/22 12:28 Pulse Ox 97 03/05/22 12:28 O2 Del Method 03/05/22 12:28 O2 Flow Rate 1 03/05/22 12:07 BMI result Body Mass Index 26.6 Appearance: Alert.? Oriented X3.? not in distress.? Eyes: Pupils equal, round and reactive to light.? Sclera nonicteric.? ENT: Pharynx normal.? Moist mucous membranes. cvs: rrr, [id number] . res: clear to auscultation ,no rhonchii or wheezing abd: no rebound or guarding ,nt, bs present. ext pulses present , no cyanosis , wiggle toes right side , has soarness when try to move right leg left leg rom-intact. neuro: axo3 , nonfocal. Results Labs CBC and Chem 7: 03/05/22 06:30 03/05/22 06:30 Labs: Laboratory Results - last 24 hr 03/05/22 03/05/22 03/05/22 06:05 06:30 06:30 MCV 93.7 MCH 32.2 MCHC 34.4 RDW 12.1 Plt Count 172 MPV 9.8 Immature Gran % (Auto) 0.4 Neut % (Auto) 46.2 Lymph % (Auto) 40.0 [place] % (Auto) 10.5 Eos % (Auto) 2.5 Baso % (Auto) 0.4 Lymph # (Auto) 2.1 [place] # (Auto) 0.6 Eos # (Auto) 0.1 Baso # (Auto) 0.0 Abs Immat Gran (auto) 0.02 Absolute Neuts (auto) 2.4 Absolute Nucleated RBC 0.000 Nucleated RBC % (auto) 0.0 Anion Gap 10 L Estim Creat Clear Calc 116.1 Estimated GFR > 60 Random Glucose 113 Calcium 8.9 D COVID-19 (BLADE) Negative COVID-19 Clin Com See Note Assessment and Plan (1) S/P total right hip arthroplasty: Status: Acute (2) HTN (hypertension): Status: Acute Plan 46-year-old male with a past medical history of hypertension , osteoarthritis-s/p right hip arthroplasty . 1. osteoarthritis-s/p right hip arthroplasty day 1. pain conrtol bowel regimen incentive tayo 2.HTN: blood pressure seems controlled. atenolol DVT prophylaxis:? as per primary team scd. Above management discussed the patient and primary team .
[2022-03-05] MEDS: oxyCODONE HCl Immed Release 5 MG TABLET PO (18:11)
[2022-03-05] MEDS: Celecoxib 200 MG CAPSULE PO (19:50)
[2022-03-05] MEDS: Docusate Sodium 100 MG CAPSULE PO (19:50)
[2022-03-06] VITALS (8 sets, daily range): BP systolic 132–140; BP diastolic 58–67; PULSE 60–97; RESP 18–20; TEMP 36.2–37.3; O2SAT 98–100
[2022-03-06] MEDS: oxyCODONE HCl Immed Release 5 MG TABLET PO ×4 (00:21→21:12)
[2022-03-06 06:02] LABS: MANUAL DIFF FLAG NO
[2022-03-06 06:28] LABS: Anion Gap 11 (12-20); Blood Urea Nitrogen 6 mg/dL (9-16); Calcium 8.5 mg/dL (8.4-10.2); Carbon Dioxide 28 mmol/L (22-29); Chloride 105 mmol/L (96-108); Creatinine Clr Calc Pharmacy 132.9; Estimated Glomerular Filt Rate > 60; Glucose Fasting 129 mg/dL (60-99); Potassium 4.1 mmol/L (3.3-5.1); Sodium 140 mmol/L (135-145)
[2022-03-06 06:37] LABS: Basophils Percent Auto 0.1 % (0-2); Hematocrit 32.5 % (42.0-52.0); Imm Gran Abs Auto 0.06 X10*3/uL (0.00-0.03); Imm Gran Pct Auto 0.6 % (0.0-0.4); Lymphocytes Absolute Auto 1.1 X10*3/uL (1.2-4.9); Lymphocytes Percent Auto 10.5 % (20-40); Mean Corpuscular HGB Conc 33.8 g/dl (31.0-36.0); Mean Corpuscular Hemoglobin 32.1 pg (27.0-33.0); Mean Corpuscular Volume 94.8 fL (80.0-98.0); Monocytes Percent Auto 9.7 % (2-11); Neutrophils Absolute Auto 8.4 x10*3/uL (2.0-8.3); Neutrophils Percent Auto 79.1 % (45-73); Platelet Count 146 X10*3/uL (160-400); Red Blood Count 3.43 X10*6/uL (4.60-5.80); Red Cell Distribution Width 12.3 % (11.0-16.0); White Blood Count 10.6 X10*3/uL (4.8-10.8)
--- NOTE | 2022-03-06 07:40 | PM.PNORT ---
Subjective Subjective Date of Service: 03/06/22 Interval history: POD1 s/p RTHA. No overnight events. Pain is managed. No overnight events. No additional complaints. Physical Exam Vital Signs: Vital Signs: Last Vital Signs Temp 97.3 F 03/06/22 03:18 Pulse 78 03/06/22 03:18 Resp 18 03/06/22 03:18 BP 140/67 H 03/06/22 03:18 Pulse Ox 98 03/06/22 03:18 O2 Del Method 03/06/22 03:18 O2 Flow Rate 1 03/05/22 12:07 BMI result Body Mass Index 26.6 Const: General: cooperative, healthy appearing and no acute distress Resp: Effort & Inspection: normal respiratory effort and able to speak in complete sentences Cardio: Rate: regular rate Peripheral pulses: Peripheral pulses 2+ throughout GI: Palpation (GI): Soft to palpation Skin: Lesions: no lesions Rashes: no rashes Extrem: Other: Right hip Aquacel is clean, dry, and intact. Able to dorsiflex and plantarflex. Sensation intact. Procedures Date of Service Date of Service: 03/06/22 Progress Note: A&P Assessment and plan (1) Status post total hip replacement, right: Status: Acute Assessment and Plan: Continue pain mgmnt Begin ASA for dvt ppx begin PT for RTHA - WBAT Dispo planning-Pending PT eval, pain mgmnt Time Spent With Patient Time: Total time spent is greater than 50% in coordination of care (as documented) at patient's floor/unit and/or counseling patient: Quality Stroke Does the patient have a stroke diagnosis?: No VTE Prior VTE?: No VTE Risk Level:: Surgical - very high VTE Device Contraindication: N/A - Device Ordered VTE Drug Contraindication: N/A - Med Ordered
[2022-03-06] MEDS: Aspirin 325 MG TABLET PO ×2 (07:44→21:03)
[2022-03-06] MEDS: Lactated Ringers 1,000 ML 100 ML IVCONT (07:44)
[2022-03-06] MEDS: Celecoxib 200 MG CAPSULE PO ×2 (07:44→21:04)
[2022-03-06] MEDS: oxyCODONE HCl ER 10 MG TAB.ER.12H PO ×2 (07:45→21:04)
[2022-03-06] MEDS: Docusate Sodium 100 MG CAPSULE PO ×2 (07:46→21:04)
--- NOTE | 2022-03-06 09:31 | MHC.CM.PN ---
PATIENT IS FULLY INDEPENDENT HE LIVES WITH FAMILY IS HCP AND A COPY IS REQUESTED TO BE BROUGHT IN. HE HAS A TOILET RISER, CANE AND WALKER IN ANTICIPATION OF THIS SURGERY. COVID VACCINATED X 1 WITH [employer]. PATIENT ALSO RECENTLY CONTRACTED COVID-19 FAMILY WILL TRANSPORT PATIENT HOME PATIENT AGREEABLE TO A [facility] REFERRAL AND CHOOSES [facility]. REFERRAL PLACED.
--- NOTE | 2022-03-06 10:01 | HO.POSTANES ---
Post Anesthesia Evaluation Post Anesthesia Evaluation Vital Signs: Vital Signs Temp Pulse Resp BP Pulse Ox O2 Del Method 03/06/22 08:38 60 138/62 100 03/06/22 08:00 97.6 F 60 18 138/62 100 Room Air 03/06/22 03:18 97.3 F 78 18 140/67 H 98 Room Air 03/05/22 23:41 97.1 F 85 18 136/64 97 Room Air Anesthesia: General Mental Status: Awake Pain Control: Satisfactory Nausea/Vomiting: None Hydration: Adequate Anesthesia-Related Issues: No Anes. Related Issues
--- NOTE | 2022-03-06 12:10 | P.PNIM_ITS ---
Subjective Subjective Date of Service: 03/06/22 Interval History: htn Review of Systems Hip pain seems to be improving, denies any chest pain or shortness of breath or abdominal pain nausea vomiting. Physical Exam Vital Signs: Vital Signs: Last Vital Signs Temp 97.3 F 03/06/22 11:21 Pulse 79 03/06/22 11:21 Resp 18 03/06/22 11:21 BP 139/60 03/06/22 11:21 Pulse Ox 99 03/06/22 11:21 O2 Del Method 03/06/22 11:21 O2 Flow Rate 1 03/05/22 12:07 BMI result Body Mass Index 26.6 Appearance: Alert.? Oriented X3.? not in distress.? cvs: [id number], [id number] , no murmur res: clear to auscultation ,no rhonchii or wheezing abd: no rebound or guarding ,nt, bs present. ext pulses present , no cyanosis . neuro: axo3 , nonfocal. Objective Data Active Medications Acetaminophen (Acetaminophen 325 Mg Tablet) 650 mg PO Q6H PRN PRN Reason: Pain, Mild (Pain Scale 1-3) Aspirin (Aspirin 325 Mg Tablet) 325 mg PO BID [facility] Last Admin: 03/06/22 07:44 Dose: 325 mg Documented By: TIFFANY Celecoxib (Celecoxib 200 Mg Capsule) 200 mg PO BID [facility] Last Admin: 03/06/22 07:44 Dose: 200 mg Documented By: TIFFANY Docusate Sodium (Docusate Sodium 100 Mg Capsule) 100 mg PO BID [facility] Last Admin: 03/06/22 07:46 Dose: 100 mg Documented By: TIFFANY Hydromorphone HCl (Hydromorphone Hcl 1 Mg/Ml Syringe) 0.25 mg IVPUSH Q4H PRN; Protocol PRN Reason: Pain, Severe (Pain Scale 7-10) Last Admin: 03/05/22 13:09 Dose: 0.25 mg Documented By: TIFFANY Ondansetron HCl (Ondansetron Hcl 4 Mg/2 Ml Vial) 4 mg IVPUSH Q8H PRN PRN Reason: Nausea and Vomiting Oxycodone HCl (Oxycodone Hcl Immed Release 5 Mg Tablet) 5 mg PO Q4H PRN PRN Reason: Pain, Moderate (Pain Scale 4-6 Last Admin: 03/06/22 07:45 Dose: 5 mg Documented By: TIFFANY Oxycodone HCl (Oxycodone Hcl Er 10 Mg Tab.Er.12h) 10 mg PO BID [facility] Last Admin: 03/06/22 07:45 Dose: 10 mg Documented By: TIFFANY Polyethylene Glycol (Polyethylene Glycol 3350 17 Gm Powd.Pack) 17 gm PO DAILY PRN PRN Reason: Constipation Sodium Chloride (0.9 % Sodium Chloride Flush 3 Ml Syringe) 3 ml IVFLUSH QSHIFT [facility] Last Admin: 03/06/22 09:39 Dose: Not Given Documented By: TIFFANY Non-Admin Reason: IV Running Labs CBC & Chem 7: 03/06/22 05:25 03/06/22 05:25 Labs: Laboratory Results - last 24 hr 03/06/22 03/06/22 05:25 05:25 MCV 94.8 MCH 32.1 MCHC 33.8 RDW 12.3 Plt Count 146 L MPV 11.0 Immature Gran % (Auto) 0.6 H Neut % (Auto) 79.1 H Lymph % (Auto) 10.5 L [place] % (Auto) 9.7 Eos % (Auto) 0.0 Baso % (Auto) 0.1 Lymph # (Auto) 1.1 L [place] # (Auto) 1.0 Eos # (Auto) 0.0 Baso # (Auto) 0.0 Abs Immat Gran (auto) 0.06 H Absolute Neuts (auto) 8.4 H Absolute Nucleated RBC 0.000 Nucleated RBC % (auto) 0.0 Anion Gap 11 L Estim Creat Clear Calc 132.9 Estimated GFR > 60 Fasting Glucose 129 H Calcium 8.5 Assessment and Plan (1) HTN (hypertension): Status: Acute Plan 46-year-old male with a past medical history of hypertension , osteoarthritis- s/p right hip arthroplasty . 1. osteoarthritis-s/p right hip arthroplasty day 2. pain conrtol bowel regimen incentive tayo pt eval 2.HTN: blood pressure seems controlled. atenolol DVT prophylaxis:? as per primary team scd. ? Above management discussed the patient and primary team . inpatient need: hip fx -jamie day2 Quality Stroke Does the patient have a stroke diagnosis?: No VTE Prior VTE?: No VTE Risk Level:: Surgical - very high VTE Device Contraindication: N/A - Device Ordered VTE Drug Contraindication: N/A - Med Ordered
[2022-03-06] MEDS: 0.9 % Sodium Chloride Flush 3 ML SYRINGE IVFLUSH ×2 (15:30→23:59)
[2022-03-07 03:18] VITALS: BP 111/66; PULSE 84; RESP 18; TEMP 36.2; O2SAT 99
[2022-03-07] MEDS: oxyCODONE HCl Immed Release 5 MG TABLET PO ×3 (03:56→12:11)
[2022-03-07 06:32] LABS: MANUAL DIFF FLAG NO
[2022-03-07 06:37] LABS: Basophils Percent Auto 0.3 % (0-2); Eosinophils Absolute Auto 0.1 X10*3/uL (0.0-0.4); Eosinophils Percent Auto 0.6 % (0-4); Hematocrit 30.3 % (42.0-52.0); Hemoglobin 10.2 g/dl (14.0-18.0); Imm Gran Abs Auto 0.02 X10*3/uL (0.00-0.03); Imm Gran Pct Auto 0.3 % (0.0-0.4); Lymphocytes Absolute Auto 1.8 X10*3/uL (1.2-4.9); Mean Corpuscular HGB Conc 33.7 g/dl (31.0-36.0); Mean Corpuscular Hemoglobin 32.4 pg (27.0-33.0); Mean Corpuscular Volume 96.2 fL (80.0-98.0); Mean Platelet Volume 10.7 fL (9.4-12.4); Monocytes Percent Auto 12.4 % (2-11); Neutrophils Percent Auto 63.4 % (45-73); Platelet Count 123 X10*3/uL (160-400); Red Blood Count 3.15 X10*6/uL (4.60-5.80); Red Cell Distribution Width 12.6 % (11.0-16.0); White Blood Count 7.9 X10*3/uL (4.8-10.8)
[2022-03-07 07:12] LABS: Anion Gap 11 (12-20); Blood Urea Nitrogen 8 mg/dL (9-16); Calcium 8.1 mg/dL (8.4-10.2); Carbon Dioxide 27 mmol/L (22-29); Chloride 105 mmol/L (96-108); Creatinine Clr Calc Pharmacy 136.1; Estimated Glomerular Filt Rate > 60; Glucose Fasting 113 mg/dL (60-99); Potassium 3.8 mmol/L (3.3-5.1); Sodium 139 mmol/L (135-145)
--- NOTE | 2022-03-07 07:53 | P.DS_ITS ---
DS: Providers Provider Date of Service: 03/07/22 Date of admission: 03/05/22 05:58 Primary care physician: Zabrina Goetz MD Consults: 03/05/22 12:28 Consult to Hospitalist Routine Consulting Provider: Hospitalist Reason For Exam: medical managment DS: Summary Hospital Course Hospital Course: The patient underwent a successful right total hip arthroplasty, they were transferred to PACU and then to the floor to recover. During their stay, their vitals were stable, afebrile at 97.1. Labs were unremarkable, H/H 10.2/30.3. POD 1 they were started on Aspirin 325mg po bid for DVT ppx, they also received Physical Therapy services twice a day. Prior to discharge, their dressing was changed, incision clean dry and intact, new Aquacel dressing applied and the plan was to be discharged home with VNA services. Time Spent with Patient Time attestation: Total time spent providing and/or coordinating discharge services: Discharge coordination time: Less than 30 minutes Quality: Safe Use of Opioids Does Pt have an Active Cancer Diagnosis on the Problem List?: No Quality: Stroke Does the patient have a stroke diagnosis?: No Physical Exam Vital Signs: Vital Signs: Last Vital Signs Temp 97.1 F 03/07/22 03:18 Pulse 84 03/07/22 03:18 Resp 18 03/07/22 03:18 BP 111/66 03/07/22 03:18 Pulse Ox 99 03/07/22 03:18 O2 Del Method 03/07/22 03:18 O2 Flow Rate 1 03/05/22 12:07 BMI result Body Mass Index 26.6 Const: General: cooperative, healthy appearing and no acute distress Resp: Effort & Inspection: normal respiratory effort and able to speak in complete sentences Cardio: Rate: regular rate Peripheral pulses: Peripheral pulses 2+ throughout GI: Palpation (GI): Soft to palpation Skin: Lesions: no lesions Rashes: no rashes Extrem: Other: rt hip marry intact. NO erythema or drainage. New Aquacel dressing applied. Able to dorsiflex and plantarflex. NVI. DS: Data Data Completed and Pending Pending studies at discharge: Pending at discharge 03/05/22 09:31 Surgical [PTH] Routine Labs on day of discharge: Laboratory Results - last 24 hr 03/07/22 03/07/22 05:45 05:45 WBC 7.9 RBC 3.15 L Hgb 10.2 L Hct 30.3 L MCV 96.2 MCH 32.4 MCHC 33.7 RDW 12.6 Plt Count 123 L MPV 10.7 Immature Gran % (Auto) 0.3 Neut % (Auto) 63.4 Lymph % (Auto) 23.0 [place] % (Auto) 12.4 H Eos % (Auto) 0.6 Baso % (Auto) 0.3 Lymph # (Auto) 1.8 [place] # (Auto) 1.0 Eos # (Auto) 0.1 Baso # (Auto) 0.0 Abs Immat Gran (auto) 0.02 Absolute Neuts (auto) 5.0 Absolute Nucleated RBC 0.000 Nucleated RBC % (auto) 0.0 Sodium 139 Potassium 3.8 Chloride 105 Carbon Dioxide 27 Anion Gap 11 L BUN 8 L Creatinine 0.81 Estim Creat Clear Calc 136.1 Estimated GFR > 60 Fasting Glucose 113 H Calcium 8.1 L Discharge Plan Discharge Patient Disposition: Home Health Service Discharge Diagnosis: rt jamie Referrals: Raisa Reyes PA-C [Physician Para Machine Operator] - 2 Weeks (03/21/22 09:30 [facility] Raisa Reyes PA-C[place] Discharge Medications: New celecoxib 200 mg Capsule 200 mg PO BID 30 Days Qty: 60 0RF acetaminophen 325 mg Tablet 650 mg PO Q6H PRN (Reason: Pain, Mild (Pain Scale 1-3)) 30 Days Qty: 240 0RF aspirin 325 mg Tablet 325 mg PO BID 42 Days Qty: 84 0RF docusate sodium 100 mg Capsule 100 mg PO BID 30 Days Qty: 60 0RF oxycodone 5 mg Tablet 5 mg PO Q4H PRN (Reason: Pain, Moderate (Pain Scale 4-6) 7 Days Qty: 42 0RF Rx Instructions: Partial Fill upon patient request. Continued amlodipine 2.5 mg tablet 2.5 mg PO DAILY Qty: 90 3RF Discharge Orders: Discharge Order (Routine); Ordered 03/07/22 Ordered By: Raisa Reyes Diet: regular diet Activity on Discharge: Use cane or walker Stand Alone Forms: Patient Portal Discharge page Care Plan Goals: Restore function of joint Health Concerns: none Plan of Treatment: Physical Therapy Pain management DVT prophylaxis Assessment: Physical Therapy for Total knee arthroplasty: WBAT, gait training, ROM 0-12, q uad strength * Limit stair climbing * No showering, no tub bath-keep dressing clean, dry and intact * No driving x6 weeks * Continue Aspirin twice a day x 6 weeks * Follow up [facility] [place] [facility] [place]: * --you will also have your first out patient PT eval on the day of your post op appt-so please plan on being in the office that day for an extended period of time.
--- NOTE | 2022-03-07 07:54 | W.MHC.F2F ---
Service Date Service Date: 03/07/22 Encounter Date of encounter: 03/07/22 Reasons for Services Signs and symptoms assessed: Pt. is considered homebound due to recent surgery. Unable to drive, poor balance, poor gait mechanics. Reason for physical therapy: home safety and mobility, therapeutic exercises, restore joint function, gait/transfer training, assess need for DME and ADL training Reason for occupational therapy: home safety and mobility, therapeutic exercises, restore joint function, gait/transfer training, assess need for DME and ADL training Homebound: Leaving the home is medically contraindicated at this time without the asist of a device and/or another person due th the listed conditions above and below. Reason homebound: unsteady gait / fall risk, leg weakness, pain with ambulation, pain with transfers, poor balance / fall risk and unable to drive Homebound supporting statement: Pt. is considered homebound due to recent surgery. Unable to drive, poor balance, poor gait mechanics. Certification: Based on the above findings, I certify that this patient is confined to the home and needs intermittent intermediate care, physical therapy and/or speech therapy, or continues to need occupational therapy. The patient is under my care, and I have initiated the establishment of the plan of care. The patient will be followed by a physician who will periodically review the plan of care.
[2022-03-07 08:00] VITALS: BP 146/78; PULSE 86; RESP 18; TEMP 36.8; O2SAT 100
[2022-03-07] MEDS: oxyCODONE HCl ER 10 MG TAB.ER.12H PO (08:09)
[2022-03-07] MEDS: Aspirin 325 MG TABLET PO (08:09)
[2022-03-07] MEDS: Docusate Sodium 100 MG CAPSULE PO (08:09)
[2022-03-07] MEDS: Celecoxib 200 MG CAPSULE PO (08:09)
[2022-03-07] MEDS: Omeprazole 20 MG CAPSULE.DR PO (08:09)
[2022-03-07] MEDS: 0.9 % Sodium Chloride Flush 3 ML SYRINGE IVFLUSH (08:10)
[2022-03-07 08:49] VITALS: BP 146/78; PULSE 86; O2SAT 100
--- NOTE | 2022-03-07 10:51 | P.PNIM_ITS ---
Subjective Subjective Date of Service: 03/07/22 Interval History: htn Review of Systems Hip pain seems to be improvingsignificantly, ?denies any chest pain or shortness of breath or abdominal pain nausea vomiting. Physical Exam Vital Signs: Vital Signs: Last Vital Signs Temp 98.2 F 03/07/22 08:00 Pulse 86 03/07/22 08:49 Resp 18 03/07/22 08:00 BP 146/78 H 03/07/22 08:49 Pulse Ox 100 03/07/22 08:49 O2 Del Method 03/07/22 08:00 O2 Flow Rate 1 03/05/22 12:07 BMI result Body Mass Index 26.6 Appearance: Alert.? Oriented X3.? not in distress.? cvs: rrr, [id number] , no murmur res: clear to auscultation ,no rhonchii or wheezing abd: no rebound or guarding ,nt, bs present. ext pulses present , no cyanosis . neuro: axo3 , nonfocal. Objective Data Active Medications Acetaminophen (Acetaminophen 325 Mg Tablet) 650 mg PO Q6H PRN PRN Reason: Pain, Mild (Pain Scale 1-3) Aspirin (Aspirin 325 Mg Tablet) 325 mg PO BID [facility] Last Admin: 03/07/22 08:09 Dose: 325 mg Documented By: MARCELLO Celecoxib (Celecoxib 200 Mg Capsule) 200 mg PO BID [facility] Last Admin: 03/07/22 08:09 Dose: 200 mg Documented By: MARCELLO Docusate Sodium (Docusate Sodium 100 Mg Capsule) 100 mg PO BID [facility] Last Admin: 03/07/22 08:09 Dose: 100 mg Documented By: MARCELLO Hydromorphone HCl (Hydromorphone Hcl 1 Mg/Ml Syringe) 0.25 mg IVPUSH Q4H PRN; Protocol PRN Reason: Pain, Severe (Pain Scale 7-10) Last Admin: 03/05/22 13:09 Dose: 0.25 mg Documented By: TIFFANY Omeprazole (Omeprazole 20 Mg Capsule.) 20 mg PO DAILY@0630 [facility] Last Admin: 03/07/22 08:09 Dose: 20 mg Documented By: MARCELLO Ondansetron HCl (Ondansetron Hcl 4 Mg/2 Ml Vial) 4 mg IVPUSH Q8H PRN PRN Reason: Nausea and Vomiting Oxycodone HCl (Oxycodone Hcl Immed Release 5 Mg Tablet) 5 mg PO Q4H PRN PRN Reason: Pain, Moderate (Pain Scale 4-6 Last Admin: 03/07/22 08:09 Dose: 5 mg Documented By: MARCELLO Oxycodone HCl (Oxycodone Hcl Er 10 Mg Tab.Er.12h) 10 mg PO BID [facility] Last Admin: 03/07/22 08:09 Dose: 10 mg Documented By: MARCELLO Polyethylene Glycol (Polyethylene Glycol 3350 17 Gm Powd.Pack) 17 gm PO DAILY PRN PRN Reason: Constipation Sodium Chloride (0.9 % Sodium Chloride Flush 3 Ml Syringe) 3 ml IVFLUSH QSHIFT [facility] Last Admin: 03/07/22 08:10 Dose: 3 ml Documented By: MARCELLO Labs CBC & Chem 7: 03/07/22 05:45 03/07/22 05:45 Labs: Laboratory Results - last 24 hr 03/07/22 03/07/22 05:45 05:45 MCV 96.2 MCH 32.4 MCHC 33.7 RDW 12.6 Plt Count 123 L MPV 10.7 Immature Gran % (Auto) 0.3 Neut % (Auto) 63.4 Lymph % (Auto) 23.0 [place] % (Auto) 12.4 H Eos % (Auto) 0.6 Baso % (Auto) 0.3 Lymph # (Auto) 1.8 [place] # (Auto) 1.0 Eos # (Auto) 0.1 Baso # (Auto) 0.0 Abs Immat Gran (auto) 0.02 Absolute Neuts (auto) 5.0 Absolute Nucleated RBC 0.000 Nucleated RBC % (auto) 0.0 Anion Gap 11 L Estim Creat Clear Calc 136.1 Estimated GFR > 60 Fasting Glucose 113 H Calcium 8.1 L Assessment and Plan (1) HTN (hypertension): Status: Acute Plan 46-year-old male with a past medical history of hypertension , osteoarthritis- s/p right hip arthroplasty . 1. osteoarthritis-s/p right hip arthroplasty day 3. pain conrtol bowel regimen incentive tayo pt eval 2.HTN: blood pressure seems controlled. atenolol DVT prophylaxis:? as per primary team scd. ? Above management discussed the patient and primary team . Quality Stroke Does the patient have a stroke diagnosis?: No VTE Prior VTE?: No VTE Risk Level:: Surgical - very high VTE Device Contraindication: N/A - Device Ordered VTE Drug Contraindication: N/A - Med Ordered
[2022-03-07 12:00] VITALS: BP 133/72; PULSE 79; RESP 17; TEMP 36.1; O2SAT 98
[2022-03-07] MEDS: Acetaminophen 325 MG TABLET 650 MG PO (12:11)
== END 2022-03-07 15:10 | disposition home health service (06) | DRG 470 ==
LOC: HO.SSSA 06:05 → HO.S3 11:14
PROVIDERS: Admitting Provider Physician Assistant; PCP Internal Medicine; Visit Provider Orthopaedic Surgery
PROC: 0SR903A Replacement of Right Hip Joint with Ceramic Synthetic Substitute, Uncemented, Open Approach (ICD-10-PCS; CPT 27130; principal; 2022-03-05 07:30)
DX: M16.11 Unilateral primary osteoarthritis, right hip (principal); I10 Essential (primary) hypertension; Z20.822 Contact with and (suspected) exposure to COVID-19; Z86.14 Personal history of Methicillin resistant Staphylococcus aureus infection; Z79.899 Other long term (current) drug therapy
CPT/HCPCS: 36415; 72170; 80048; 85025; 86850; 86900; 86901; 87635; 88304; 88311; 97110; 97116; 97162; 97165; 97166; 97535; C1776; J0131; J1100; J1170; J2250; J2405; J3010; J3370

== ENCOUNTER 2022-05-30 12:13 | Outpatient (REF) | payer OTHER, SELFPAY | END 2022-05-30 12:14 | disposition home or self-care (01) | LOC: HO.HOSX 12:13 | PROVIDERS: Visit Provider Orthopaedic Surgery | DX: Z13.89 Encounter for screening for other disorder (principal) ==